=== PATIENT | female | born 1935 | race Caucasian/White ===

== ENCOUNTER → 2018-01-17 08:59 | Outpatient (CLI) | payer MEDICARE, OTHER, SELFPAY ==
--- NOTE | 2018-01-17 09:33 | DI.CT.S_ITS ---
PROCEDURE: CT CHEST W CON INDICATIONS: re-staging esophogeal cancer TECHNIQUE: After the administration of intravenous contrast, 5 mm thick sections acquired from the pulmonary apices to the posterior costophrenic angles. 7 mm thick coronal and sagittal MIP reformats were acquired. For radiation dose reduction, the following was used: automated exposure control, adjustment of mA and/or kV according to patient size. COMPARISON: [facility], CT, CHEST/ABD/PEL WITH CONTRAST, 01/10/2017, 8:46. [facility], CT, CHEST/ABDOMEN WITH CONTRAST, 01/11/2016, 8:21. [facility], CT, CHEST/ABDOMEN WITH CONTRAST, 01/05/2015, 11:09. [facility], CT, CHEST/ABDOMEN WITH CONTRAST, 03/20/2014, 14:21. FINDINGS: Image quality: Excellent. Lungs and pleura: No acute consolidation. Small 6 mm pulmonary nodule within the left lower lobe , unchanged. No pleural effusions or pneumothorax. Central and peripheral airways are patent and normal in caliber. Mediastinum: Heart size is normal. No pericardial effusion. No mediastinal or hilar adenopathy by size criteria. Thoracic aorta and central pulmonary arteries are normal in size. Esophagus appears unchanged. Mildly prominent paraesophageal lymph nodes redemonstrated Bones and chest wall: 1.1 cm left breast mass is indeterminate but needs mammographic workup. Unchanged vertebral body compression fractures and vertebroplasty . No axillary or supraclavicular adenopathy by size criteria. Thyroid gland unchanged. Abdomen: Ovoid hypodense lesion in the spleen, unchanged. IMPRESSION: Small left breast mass, indeterminate but needs mammographic/ultrasound workup. Otherwise, stable exam. No definite evidence of progressive metastatic disease since 01/10/17. Dictated by: Gurmeet Colin M.D. on 01/17/2018 at 10:24 Approved by: Gurmeet Colin M.D. on 01/17/2018 at 11:07
[2018-01-17 09:35] LABS: Add Manual Diff / Slide Review NO; Basophils Percent Auto 0.7 % (0-2); Hematocrit 44.8 % (36-46); Hemoglobin 14.9 g/dL (12.0-16.0); Lymphocytes Percent Auto 13.6 % (25-40); Mean Corpuscular HGB Conc 33.2 % (30-36); Mean Corpuscular Hemoglobin 30.6 PG (26-34); Monocytes Percent Auto 4.6 % (3-14); Neutrophils Absolute Auto 5000 /uL (3000-5900); Neutrophils Percent Auto 80.1 % (50-75); Platelet Count 218 X10^3/uL (150-400); Red Blood Cell Count 4.87 X10^6/uL (4.0-5.2); Red Cell Distribution Width 13.4 % (11.6-14.8); White Blood Cell Count 6.2 X10^3/uL (4.5-11.0)
[2018-01-17 09:46] LABS: Alanine Aminotransferase 23 IU/L (9-52); Albumin 4.4 g/dL (3.5-5.0); Albumin Globulin Ratio 1.6 (1.0-2.8); Alkaline Phosphatase 61 U/L (38-126); Aspartate Aminotransferase 23 IU/L (14-36); Bilirubin Total 0.6 mg/dL (0.2-1.3); Blood Urea Nitrogen 14 mg/dL (7-17); Calcium 9.1 mg/dL (8.4-10.2); Carbon Dioxide 29 mmol/L (22-32); Chloride 104 mmol/L (98-107); Estimated Glomerular Filt Rate > 60.0 mL/min (>60); Globulin 2.7 g/dL (1.7-4.1); Glucose 112 mg/dL (80-110); HEMOLYSIS < 15 (0-50); Potassium 4.1 mmol/L (3.4-5.1); Sodium 143 mmol/L (137-145); Total Protein 7.1 g/dL (6.3-8.2)
== END ==
PROVIDERS: Family Provider Family Medicine; PCP Family Medicine; Visit Provider Internal Medicine Hematology & Oncology
DX: C15.9 Malignant neoplasm of esophagus, unspecified (principal)
CPT/HCPCS: 36415; 71260; 80053; 85025; Q9967

== ENCOUNTER → 2018-02-20 12:31 | Outpatient (CLI) | payer MEDICARE, OTHER, SELFPAY ==
--- NOTE | 2018-02-20 | PATH_ITS ---
[facility] Accession Number: [id number] . 01 Material submitted: . LEFT BREAST . 01 Clinical history: . MASS 1 O'CLOCK 5CM FROM NIPPLE . 02 Diagnosis: Left Breast Needle Core Biopsy, 1 o'clock, 5 cm from the Nipple: Infiltrating ductal carcinoma, with the following features: 1. Tumor size: Largest single area of involvement measures 0.5 cm. All four tissue cores involved with tumor. 2. Tumor grade: [place] grade 1 of 3 (low grade), score 5 of 9. Nuclear grade: Low (score 1 of 3). Mitotic rate: Low (score 1 of 3). Tubular differentiation: Low (score 3 of 3). 3. Ductal carcinoma in situ: Focally present, low nuclear grade with a solid growth pattern without necrosis or microcalcifications. 4. Vascular/lymphatic invasion: Not identified. 5. Receptor studies (immunohistochemistry): Estrogen receptor positive, 100% of cells with strong nuclear staining. Progesterone receptor: Positive, 20% of cells with strong nuclear staining. HER-2/connie: Negative (score 0 to 1+). 6. Additional studies: Immunohistochemistry performed with antibodies against e-cadherin (positive, supporting a diagnosis of infiltrating ductal carcinoma). . . . COMMENT: Case reviewed by Dr. Naila Huggins who agrees with the diagnosis. . Preliminary results of this evaluation are telephoned to the office of Dr. Hayder Banegas at 1 p[address] on 02/22/2018. [facility]/02/25/2018 . 02 Electronically signed: . Duke Almendarez MD, Pathologist NPI- [id number] . 01 Gross description: . Received one formalin-filled container labeled with the patient's name and designated left breast mass 1 o'clock 5 cm from nipple. The specimen is received with a plastic filter, sample loose in container. The specimen consists of multiple cabrera-white to yellow-cabrera portions of tissue which aggregate to 0.6 x 0.6 x 0.2 cm. The specimen is filtered, wrapped, and entirely submitted in one cassette. Collection date: 02/20/2018. Collection time: 13:40 per container. Total fixation time: 12 hours, up to 24. (DC:[id number]) /FRR . 02 Pathologist provided ICD-10: C50.412 . 02 CPT . 950414, 234711, 004653, 696940, N21912 Performed at: 01 [facility] [address] [place] [address], [place], [place] [id number] MD Alhaji Martínez MD Phone: [phone] Performed at: 02 [facility] [address] [address] [place], [place] [id number] MD Naila Huggins MD Phone: [phone]
--- NOTE | 2018-02-20 12:33 | DI.US.S_ITS ---
ULTRASOUND GUIDED BIOPSY LEFT BREAST USING VACUUM DEVICE WITH MARKING DEVICE INSERTED: 02/20/2018 CLINICAL: Left breast mass. PATIENT CONSENT: Risks (minor bleeding, infection, vasovagal reaction and repeat procedure), benefits and alternatives were explained to the patient and written informed consent was obtained. Correlation is made to exams dated: 01/28/2018 ultrasound, 01/28/[address] [facility], and 05/27/2012 mammogram [facility]. An ultrasound guided biopsy using real-time ultrasound was performed for the mass located in the left breast at 1 o'clock posterior depth. The skin was prepped in the usual manner. Local anesthetic was administered to the access site. A small incision was made in the breast. The abnormality was approached from the lateral aspect. A biopsy needle was placed adjacent to the abnormality under ultrasound guidance. Once the needle was documented to be in the correct location, a specimen was obtained using the Mammotome biopsy system. A clip was inserted into the biopsy cavity. The specimen was sent to the laboratory for pathological analysis. IMPRESSION: ULTRASOUND GUIDED BIOPSY MALIGNANT Ultrasound guided biopsy of the mass in the left breast at 1 o'clock posterior depth was successful. Patholology results demonstrate infiltrating ductal carcinoma with DCIS present. The findings are concordant with mammography and ultrasound. This exam was interpreted at Station ID: [id number]. Gurmeet aguilar,tal/:02/27/2018 10:34:52
--- NOTE | 2018-02-20 12:33 | DI.MG.S_ITS ---
UNILATERAL LEFT DIGITAL DIAGNOSTIC MAMMOGRAM POST-NEEDLE BIOPSY: 02/20/2018 CLINICAL: Left breast mass. Comparison is made to exams dated: 01/28/2018 mammogram - [facility], 05/27/2012 mammogram, and 05/26/2011 mammogram - [facility]. There are scattered fibroglandular elements in left breast. There is a marker clip in the appropriate position in the left breast at 1 o'clock middle depth. This marker clip placement is at the biopsy site. IMPRESSION: POST PROCEDURE MAMMOGRAM FOR MARKER PLACEMENT There was a successful marker clip placement in the left breast middle depth. This exam was interpreted at Station ID: [id number]. NOTE: For mammograms, a report in lay terms will be sent to the patient. Approximately 15% of breast malignancies will not be visualized mammographically. In the management of a palpable breast mass, a negative mammogram must not discourage biopsy of a clinically suspicious lesion. Electronically Signed By: Gurmeet aguilar/:02/20/2018 15:40:07 ACR BI-RADS Category Post-procedure mammogram for marker placement
== END ==
PROVIDERS: Family Provider Family Medicine; PCP Family Medicine
DX: C50.412 Malignant neoplasm of upper-outer quadrant of left female breast (principal); Z17.0 Estrogen receptor positive status [ER+]
CPT/HCPCS: 19083; 77065; 88305; 88342; 88360

== ENCOUNTER → 2018-02-26 08:59 | Outpatient (CLI) | payer MEDICARE, OTHER, SELFPAY ==
--- NOTE | 2018-02-26 | DI.MRI.S_ITS ---
PROCEDURE: MR THORACIC SPINE WO CON INDICATIONS: THORACIC COMPRESSION FRACTURE TECHNIQUE: Noncontrast sagittal T1 spine echo and T2 fast spin echo, sagittal STIR, axial T1 and T2 fast spin echo through the thoracic spine. COMPARISON: [facility], CT, CT CHEST W CON, 01/17/2018, 9:50. [facility], MR, T-SPINE WITHOUT CONTRAST, 04/02/2014, 10:12. FINDINGS: Image quality: Excellent. Chronic T7 compression fracture of approximately 50% height loss anteriorly. Acute or subacute T5 and T6 mild compression fractures with approximately 10-20% height loss anteriorly. No definite posterior displacement of the posterior vertebral body wall or associated canal narrowing. There are chronic appearing scattered small Schmorl's nodes without associated edema. There is thoracic kyphosis Spinal Cord: Visualized spinal cord is normal in size and signal. Cardiomegaly. Miscellaneous: On axial images, central canal and foramina appear widely patent at all scanned levels. IMPRESSION: Acute versus subacute mild T5 and T6 compression fractures. Chronic T7 compression fracture with progression in height loss. Thoracic kyphosis. Dictated by: Gurmeet Colin M.D. on 02/26/2018 at 12:43 Approved by: Gurmeet Colin M.D. on 02/26/2018 at 12:56
== END ==
PROVIDERS: PCP Family Medicine; Visit Provider Orthopaedic Surgery
DX: M48.54XA Collapsed vertebra, not elsewhere classified, thoracic region, initial encounter for fracture (principal); M40.204 Unspecified kyphosis, thoracic region
CPT/HCPCS: 72146

== ENCOUNTER 2018-03-20 07:03 | Day surgery (SDC) | payer MEDICARE, OTHER, SELFPAY ==
[2018-03-15 12:59] VITALS: BMI 20.4
[2018-03-20] VITALS (9 sets, daily range): BP systolic 132–173; BP diastolic 79–88; PULSE 71–88; RESP 15–21; TEMP 35.9–36.7; O2SAT 95–98
--- NOTE | 2018-03-20 | DI.MG.S_ITS ---
UNILATERAL LEFT DIGITAL DIAGNOSTIC MAMMOGRAM POST-NEEDLE BIOPSY: 03/20/2018 CLINICAL: Left breast cancer. Comparison is made to exams dated: 02/20/2018 mammogram - [facility], 01/28/2018 mammogram - [facility], and [facility]. There are scattered fibroglandular elements in left breast. There is a mass in the left breast at 1 o'clock middle depth, with internal biopsy marker from prior US biopsy, and also new localization wire for today's surgery.. IMPRESSION: KNOWN BIOPSY PROVEN MALIGNANCY The mass in the left breast has been localized by wire to assist in surgical excision. This exam was interpreted at Station ID: [id number]. NOTE: For mammograms, a report in lay terms will be sent to the patient. Approximately 15% of breast malignancies will not be visualized mammographically. In the management of a palpable breast mass, a negative mammogram must not discourage biopsy of a clinically suspicious lesion. Electronically Signed By: Pernell Roberson M.D. [facility]/:03/20/2018 16:49:40 ACR BI-RADS Category 6: Known biopsy proven malignancy 3346F
--- NOTE | 2018-03-20 | DI.NM.S_ITS ---
PROCEDURE: NM SENTINEL NODE W IMAGING RADIOPHARMACEUTICAL: 0.5-1.0 mCi Millipore filtered Tc-99m sulfur colloid. INDICATIONS: LEFT BREAST CANCER TECHNIQUE: The area around the nipple was prepped and draped in a sterile fashion. Tc-99m sulfur colloid was injected intra-dermally in the outer edge of the areola in the left breast. Images were obtained subsequently. A body contour outline was obtained. FINDINGS: There is/are 4 lymph node(s) in the ipsilateral axilla, which is marked on the skin and the images for referring physician. IMPRESSION: Administration of radiotracer into the left breast periareolar region for intra-operative sentinel lymph node localization. Dictated by: Pernell Roberson M.D. on 03/20/2018 at 10:58 Approved by: Pernell Roberson M.D. on 03/20/2018 at 10:59
--- NOTE | 2018-03-20 | DI.US.S_ITS ---
ULTRASOUND GUIDED WIRE LOCALIZATION LEFT BREAST WITH POST MAMMOGRAPHIC IMAGING AND RADIOGRAPHIC SPECIMEN IMAGIN03/20/2018 CLINICAL: Pre-op wire localization with ultrasound guidance. Correlation is made to exams dated: 03/20/2018 specimen, 02/20/2018 ultrasound biopsy, 02/20/2018 mammogram [facility], 01/28/2018 ultrasound, and 01/28/2018 mammogram [facility]. A wire localization using ultrasound guidance was performed for the concerning 0.9 cm x 1.1 cm x 1.2 cm spiculated lobulated solid mass located in the left breast at 1 o'clock middle depth. This was described on the previous ultrasound and biopsy reports. The skin was prepped in the usual manner. Local anesthetic was administered to the access site. The localization was approached from the lateral aspect. A J-hook wire was inserted into the targeted area through an introducer device under ultrasound guidance. The patient received additional local anesthetic during the procedure. A sterile dressing was applied to the access site. Post placement mammographic imaging was obtained. IMPRESSION: WIRE LOCALIZATION Wire localization for the 0.9 cm x 1.1 cm x 1.2 cm solid mass in the left breast at 1 o'clock middle depth was successful. The imaged specimen includes the lesion, the mass, a biopsy clip, and the distal portion of the localization wire. A specimen radiograph is recommended. This exam was interpreted at Station ID: [id number]. Pernell alexandra/josseline:03/20/2018 16:43:23
--- NOTE | 2018-03-20 | PATH_ITS ---
[facility] Accession Number: [id number] . 01 Material submitted: . PART A: LEFT AXILLARY SENTINEL NODE PART B: LEFT BREAST . Diagnosis: A. Left Axillary Grulla Lymph Node, Dissection: One lymph node, negative for malignancy. . B. Left Breast, Excision: Invasive ductal carcinoma (with lobular growth pattern), grade 2 of 3 (Sancho combined histologic grade, total score 6/9), with the following features: 1. Tumor size (invasive component): 1.4 cm, by gross measurement. 2. Nuclear pleomorphism: Intermediate (2/3). 3. Mitotic rate: Low (1/3). 4. Tubular differentiation: Little or none (3/3). 5. Ductal carcinoma in situ: Present, solid growth pattern with the following features: i. Nuclear grade: Intermediate. ii. Necrosis: Present, focal punctate. iii. Extent: Present on 3 slides, approximate span of 1.7 cm. 6. Calcifications: Present, in association with invasive carcioma, ductal carcinoma in situ, and benign breast parenchyma. 7. Lymphatic invasion: Not identified. 8. Resection margins: i. Invasive carcinoma: Negative (0.15 cm to anterior, 0.4 cm to posterior, 0.6 cm to inferior, and more than 1 cm to the remaining margins). ii. DCIS: Negative (0.4 cm to anterior, 0.6 cm to posterior, and more than 1 cm to the remaining margins). 9. Prognostic markers (performed on prior biopsy [id number]): Estrogen receptor: Positive (100% of tumor cells staining, strong staining intensity). Progesterone receptor: Positive (20% tumor cells staining, strong intensity. HER-2 status: Negative for protein overexpression by immunohistochemistry (0-1+). 10. Additional findings: - Skin, nipple, and skeletal muscle: Not present for evaluation. - Other: Sclerosing papilloma, apocrine metaplasia, usual ductal hyperplsaia, and microcysts. - Biopsy site changes: present. 11. Pathologic stage: pT1c, pN0. MRV/03/25/2018 . 01 Electronically signed: . Ruby Swan MD, Pathologist NPI- [id number] . 01 Gross description: . A. Received in formalin labeled with the patient's name and left axillary sentinel node is a 2.0 x 2.0 x 1.0 cm aggregate of yellow fat. Sectioning in this fat reveals a single yellow lymph node, which is 1.2 cm in greatest dimension. It is bisected and entirely submitted as A1. B. Received in formalin labeled with the patient's name and left breast lumpectomy is a 30 gram oriented lumpectomy specimen. This lumpectomy is received oriented per the requisition with the short suture at superior, wire lateral, and long suture at anterior. Using this orientation, the specimen has the following measurements: 5.5 cm superior to inferior, 5.0 cm medial to lateral and 2.2 cm anterior to posterior. The wire is piercing the specimen from lateral towards medial. It is removed. The specimen is inked as follows: anterior- blue, posterior-black, superior-red, inferior-green, lateral-yellow, and medial-orange. The specimen is serially sectioned from superior to inferior into 10 slices. Sectioning reveals a hard well- circumscribed white nodule. In the center of this nodule is a silver metal clip. The nodule is 1.4 x 1.0 x 0.6 cm. It is 3.2 cm from the superior margin, 0.6 cm from the inferior margin, 1.7 cm from the medial margin, 2.1 cm from the lateral margin and less than 0.1 cm from both the anterior and posterior margins. Motor Adjuster sections are submitted sequentially from superior to inferior to include renewals representative sections through all of the margins as B1-B7. (SB:[id number]) /[facility] . 01 Microscopic: . Deeper levels are obtained on slides B4 and B5 to examine the margins, and on A1 for further examination of the sentinel lymph node. . Immunostains, including myoepithelial markers (p63 and smooth muscle myosin) and a lymphovascular marker D2-40 are obtained to assess for the presence of solid papillary carcinoma on block B5. The external controls stain appropriately. The myoepithelial markers are retained around the majority of the areas of interest in support of DCIS. D2-40 highlights lymphatic spaces without evidence of lymphatic space invasion. A focus of perineural invasion is identified. . * This test was developed and its performance characteristics determined by [employer]. It has not been cleared or approved by the U.S. Food and Drug Administration. The FDA has determined that such clearance or approval is not necessary. This test is used for clinical purposes. It should not be regarded as investigational or for research. . 01 Pathologist provided ICD-10: C50.412 . 01 CPT . 050579, O54540, G16114 Performed at: 01 [facility] [address] [place] [address] [address] [facility], [place], [place] [id number] MD Alhaji Martínez MD Phone: [phone]
--- NOTE | 2018-03-20 | DI.MG.S_ITS ---
SPECIMEN LEFT BREAST: 03/20/2018 CLINICAL: Left breast specimen. Correlation is made to exams dated: 03/20/2018 mammogram, 02/20/2018 mammogram - [facility], and 01/28/2018 mammogram - [facility]. A surgical specimen was imaged for the concerning spiculated irregular shaped mass located in the left breast at 1 o'clock middle depth. IMPRESSION: SPECIMEN The imaged specimen includes the lesion, a biopsy clip, and a location device. This exam was interpreted at Station ID: [id number]. Pernell Roberson M.D. nasrin/josseline:03/20/2018 16:51:41
[2018-03-20] MEDS: LACTATED RINGERS 1,000 ML 100 ML IV (10:15)
--- NOTE | 2018-03-20 11:23 | PM.PREOP ---
Pre-operative Note Interval Note History & Physical reviewed/Exam performed by Physician: Yes Changes to H&P: Yes H&P completed within 30 days and has changed as indicated here:: Final pathology reveals invasive ductal carcinoma grade 5 of 9 which is 100% estrogen sensitive.
[2018-03-20] MEDS: CEFAZOLIN 2 GM/100 ML FROZ.PIGGY IV (11:38)
--- NOTE | 2018-03-20 11:58 | SUR.OPER ---
Supine on padded OR bed, head on pillow, arms secured on padded arm boards at <90 degrees abduction, legs uncrossed, safety belt at thigh, tape over blanket over lower legs.
[2018-03-20] MEDS: BUPIVACAINE 0.5% (PF) VIAL 30 ML INJ (12:06)
[2018-03-20] MEDS: LIDOCAINE 1% W/EPI INJ 20 ML INJ (12:06)
--- NOTE | 2018-03-20 12:18 | PM.OP.1 ---
Operative Date/Time/Diagnoses Date of procedure: 03/20/18 Time of procedure: 12:19 Pre-op diagnosis: Biopsy-proven left breast cancer Post-op diagnosis: same Procedure & Clinicians Procedure: Left breast lumpectomy and sentinel node biopsy after needle localization and mapping Same procedure as scheduled: Yes Indications: Biopsy-proven left breast infiltrating carcinoma Surgeon: Kenna Aj Anesthesia Type: General (Dr. Dunbar) Operative Notes Findings: 1. Single sentinel node with 10 sec count greater than 21,000. Background in the axilla of less than 20. Background in the room is 0 2. Clip, wire, and mass all contained within the specimen. Closure Type: primary Specimen(s): other (1. Left axillary sentinel node, 2. Left breast mass marked for orientation) Implants & Drains: Clips luis the lumpectomy cavity Estimated Blood Loss (mL): 10 Blood products transfused: none Procedure in detail: After obtaining informed consent, the patient was brought to the operating room and placed in the supine position on the operating table. Following successful induction of general endotracheal anesthesia, appropriate padding of all bony prominences, and placement of appropriate monitors, the left breast and axilla were prepped and draped in a standard surgical fashion. A timeout was held per SCOAP protocol. Following injection of mixture of local anesthetics into the axillary fold on the left side, an incision was created and carried down through the skin and subcutaneous tissue to enter the axillary fat pad below. The Navigator was used to identify the sentinel node. This was done by identifying a moderate-sized node in level I of the axillary packet. The node itself had a 1 second count of approximately greater than 2000 in a background of less than 20. The node was carefully liberated from the remainder of the axillary packet being sure not to compromise any of the other lymphatic structures. All afferent and efferent lymphatics and vasculature were addressed with hemoclips prior to division. The wound was checked for hemostasis and irrigated with warm water. We continued with lumpectomy on the left side. Due to the relative locations of the node in the mass, we were able to do the lumpectomy through the same incision by which we had obtained the sentinel node. Using traction and counter-traction, the mass and localizing wire carefully dissected free from the overlying skin, underlying muscle, and surrounding breast tissue. The mass was delivered into the field and marked appropriately. It was sent for specimen x-ray. The wound was checked for hemostasis and irrigated with water. The radiologist called back into the room noting that the specimen x-ray contained the wire clip and mass. The wound was checked once again for hemostasis. It was irrigated copiously with warm water and aspirated free of all fluid and then closed in 2 layers with Vicryl Monocryl suture. Dermabond was applied to the skin incisions. Fluffs and a breast binder were applied. The patient tolerated the procedure very well. She was allowed awaken from anesthesia and taken to the post-anesthesia care unit in good condition. Complications: none Condition: stable Disposition: PACU Plan for aftercare: 1. Discharge to home 2. Follow up with me in 2 weeks
--- NOTE | 2018-03-20 12:24 | P.OP_ITS ---
Operative Date/Time/Diagnoses Date of procedure: 03/20/18 Time of procedure: 12:19 Pre-op diagnosis: Biopsy-proven left breast cancer Post-op diagnosis: same Procedure & Clinicians Procedure: Left breast lumpectomy and sentinel node biopsy after needle localization and mapping Same procedure as scheduled: Yes Indications: Biopsy-proven left breast infiltrating carcinoma Surgeon: Kenna Aj Anesthesia Type: General (Dr. Dunbar) Operative Notes Findings: 1. Single sentinel node with 10 sec count greater than 21,000. Background in the axilla of less than 20. Background in the room is 0 2. Clip, wire, and mass all contained within the specimen. Closure Type: primary Specimen(s): other (1. Left axillary sentinel node, 2. Left breast mass marked for orientation) Implants & Drains: Clips luis the lumpectomy cavity Estimated Blood Loss (mL): 10 Blood products transfused: none Procedure in detail: After obtaining informed consent, the patient was brought to the operating room and placed in the supine position on the operating table. Following successful induction of general endotracheal anesthesia, appropriate padding of all bony prominences, and placement of appropriate monitors, the left breast and axilla were prepped and draped in a standard surgical fashion. A timeout was held per SCOAP protocol. Following injection of mixture of local anesthetics into the axillary fold on the left side, an incision was created and carried down through the skin and subcutaneous tissue to enter the axillary fat pad below. The Navigator was used to identify the sentinel node. This was done by identifying a moderate- sized node in level I of the axillary packet. The node itself had a 1 second count of approximately greater than 2000 in a background of less than 20. The node was carefully liberated from the remainder of the axillary packet being sure not to compromise any of the other lymphatic structures. All afferent and efferent lymphatics and vasculature were addressed with hemoclips prior to division. The wound was checked for hemostasis and irrigated with warm water. We continued with lumpectomy on the left side. Due to the relative locations of the node in the mass, we were able to do the lumpectomy through the same incision by which we had obtained the sentinel node. Using traction and counter -traction, the mass and localizing wire carefully dissected free from the overlying skin, underlying muscle, and surrounding breast tissue. The mass was delivered into the field and marked appropriately. It was sent for specimen x- ray. The wound was checked for hemostasis and irrigated with water. The radiologist called back into the room noting that the specimen x-ray contained the wire clip and mass. The wound was checked once again for hemostasis. It was irrigated copiously with warm water and aspirated free of all fluid and then closed in 2 layers with Vicryl Monocryl suture. Dermabond was applied to the skin incisions. Fluffs and a breast binder were applied. The patient tolerated the procedure very well. She was allowed awaken from anesthesia and taken to the post-anesthesia care unit in good condition. Complications: none Condition: stable Disposition: PACU Plan for aftercare: 1. Discharge to home 2. Follow up with me in 2 weeks
[2018-03-20] MEDS: ONDANSETRON 4 MG/2 ML INJ IV (12:55)
--- NOTE | 2018-03-20 13:26 | SUR.PHASEII ---
PT WAS MEDICATED FOR C/O NAUSEA, AT PRESENT SHE IS TOLERATING ORAL FLUIDS AND CRACKERS, D/C INSTRUCTIONS REVIEWED WITH PT AND HER FRIEND URVASHI WITH VERBALIZED UNDERSTANDING.
== END 2018-03-20 15:57 ==
PROVIDERS: PCP Family Medicine; Visit Provider Surgery
PROC: (CPT 19301; principal; 2018-03-20 11:45)
DX: C50.412 Malignant neoplasm of upper-outer quadrant of left female breast (principal); Z85.01 Personal history of malignant neoplasm of esophagus; I10 Essential (primary) hypertension; Z87.891 Personal history of nicotine dependence
CPT/HCPCS: 19301; 38500; 19285; 76098; 77065; 78195; 88307; 88341; 88342; A9541; J0690; J1100; J2405; J2704; J3010

== ENCOUNTER → 2019-01-20 07:22 | Outpatient (CLI) | payer MEDICARE, OTHER, SELFPAY | PROVIDERS: Family Provider Family Medicine; PCP Family Medicine; Visit Provider Radiology Radiation Oncology | DX: Z12.31 Encounter for screening mammogram for malignant neoplasm of breast (principal); Z53.9 Procedure and treatment not carried out, unspecified reason ==

== ENCOUNTER → 2019-02-11 09:11 | Outpatient (CLI) | payer MEDICARE, OTHER, SELFPAY ==
--- NOTE | 2019-02-11 | DI.MG.S_ITS ---
BILATERAL DIGITAL SCREENING MAMMOGRAM 3D/2D WITH CAD: 02/11/2019 CLINICAL: Routine. Personal history of breast cancer. Comparison is made to exams dated: 03/20/2018 mammogram, 02/20/2018 mammogram - [facility], 01/28/2018 mammogram - [facility], and 05/27/2012 mammogram - [facility]. There are scattered fibroglandular elements in both breasts. Current study was also evaluated with a Computer Aided Detection (CAD) system. There are benign calcifications in both breasts. There also are benign post operative findings in the left breast. No significant masses, calcifications, or other findings are seen in either breast. There has been no significant interval change. IMPRESSION: There is no mammographic evidence of malignancy. A 1 year screening mammogram is recommended. This exam was interpreted at Station ID: [id number]. NOTE: For mammograms, a report in lay terms will be sent to the patient. Approximately 15% of breast malignancies will not be visualized mammographically. In the management of a palpable breast mass, a negative mammogram must not discourage biopsy of a clinically suspicious lesion. Electronically Signed By: Rock estrada/josseline:02/12/2019 11:58:04 letter sent: Normal Exam ACR BI-RADS Category 2: Benign Finding(s) 3342F
== END ==
PROVIDERS: Family Provider Family Medicine; PCP Family Medicine; Visit Provider Radiology Radiation Oncology
DX: Z12.31 Encounter for screening mammogram for malignant neoplasm of breast (principal); Z80.3 Family history of malignant neoplasm of breast
CPT/HCPCS: 77063; 77067

== ENCOUNTER 2019-02-20 10:27 | Day surgery (SDC) | payer MEDICARE, OTHER, SELFPAY ==
--- NOTE | 2019-02-20 | PATH_ITS ---
[facility] Accession Number: [id number] . 01 Material submitted: . PART A: cecum - CECAL POLYP PART B: colon - ASCENDING COLON POLYP PART C: colon - COLON POLYP AT 25 CM X2 . 02 Diagnosis: A. Cecum, Polyp: Tubular adenoma. . B. Ascending Colon, Polyp: Tubulovillous adenoma. Negative for high-grade dysplasia or malignancy. . C. Colon at 25 cm, Polyps; Fragments of tubular adenoma/tubulovillous adenoma (two polyps removed). Negative for high-grade dysplasia or malignancy. MRV 02/21/2019 1505 Local . 02 Electronically signed: . Fabián Johnson MD, PhD, Pathologist NPI- [id number] . 01 Gross description: . Received three formalin-filled containers, each labeled with the patient's name: . A. In a container labeled cecal polyp are three fragments of cardona, soft tissue which range in size from less than 0.1 cm to 0.3 x 0.2 x 0.2 cm. All fragments are totally submitted in cassette A. B. In a container labeled ascending colon polyp are multiple fragments of cardona, soft tissue which range in size from 0.1 x 0.1 x 0.1 cm to 0.4 x 0.3 x 0.3 cm. All fragments are totally submitted in cassette B. C. In a container labeled colon polyp at 25 cm x2 are three fragments of cardona, soft tissue which range in size from 0.8 x 0.5 x 0.5 cm to 1.5 x 1.5 x 1.4 cm. The specimen is sectioned into multiple pieces and entirely submitted in cassettes C1-C3. ([id number]) /[facility] 02/21/2019 0228 Local . 02 Pathologist provided ICD-10: D12.0, D12.2, D12.6 . 02 CPT . 620878, [id number], [id number] Performed at: 01 [facility] [address] [id number] MD Ahlaji Martínez MD Phone: [phone] Performed at: 02 [facility] [place] [address] [place], [place] [id number] MD Naila Huggins MD Phone: [phone]
[2019-02-20 11:00] VITALS: BP 127/85; PULSE 84; RESP 20; TEMP 36.2; O2SAT 99; BMI 19.5
[2019-02-20] MEDS: SODIUM CHLORIDE 0.9% 1,000 ML 200 ML IV (11:08)
--- NOTE | 2019-02-20 11:36 | PM.PREOP ---
Pre-operative Note Interval Note History & Physical reviewed/Exam performed by Physician: Yes Changes to H&P: No ASA Class (for procedural sedation): II
[2019-02-20] MEDS: MIDAZOLAM 5 MG/5 ML VIAL IV (11:47)
[2019-02-20] MEDS: fentaNYL 250 MCG/5 ML INJ IV (11:47)
--- NOTE | 2019-02-20 12:45 | PM.OP.ENDO ---
Operative Date/Time/Diagnoses Date of procedure: 02/20/19 Time of procedure: 12:45 Pre-op diagnosis: Rectal bleeding Post-op diagnosis: same (Multiple large polyps. Internal hemorrhoids) Procedure & Clinicians Study performed: Colonoscopy with hot snare polypectomies X4 Same procedure as scheduled: Yes Indications: Determine cause of bleeding Surgeon: Gutierrez Jennings Procedure Notes SCOAP/Timeout: Performed Procedure in detail: The patient was placed in the left lateral decubitus position and underwent IV sedation directed by the surgeon consisting of fentanyl and Versed. Digital exam was unremarkable. The scope was inserted and advanced through the rectum into the sigmoid, descending, transverse, and ascending colon. Large polyps were noted at 25 cm which I decided to remove on the way out. There were numerous diverticuli of the sigmoid colon with tortuosity. Patient was noted to have an ascending polyp as well. The cecum was reached identified by the ileocecal valve and the appendiceal opening. There was a polypoid lesion in the cecum which was hot snared and removed. I also hot snared the polyp in the ascending colon. The scope was gradually brought out. Two additional large Polyps were found at 25 cm from the anal verge. These were snared and the base of 1 cauterized. I had to retrieve them 1 at a time using a Griffin net. I also injected ink in to 2 spots just distal to these lesions in order to tack to them for future reference. The scope ultimately was retroflexed in the rectum. The appearance was remarkable for internal hemorrhoids. I decided not to band them at this time but since I plan to reschedule this patient within the next 6 months to confirm complete removal of the lesions at 25 cm I will probably attempt a band at that time. The scope was removed and the patient tolerated the procedure well. Prep was very good. Scope withdrawal time: Exceeded 6 minutes(42total) Sedation minutes: 57 Findings: diverticulosis, internal hemorrhoids and polyp (Several large polyps) Specimen(s): other (Polyps) Complications: none Post-procedure Recommendations: Other recommendation (Colonoscopy in 3-6 months to carefully examine the area at 25 cm which was tattooed) Follow up: as needed Disposition: PACU
[2019-02-20 12:50] VITALS: BP 117/70; PULSE 64; RESP 15; TEMP 35.9; O2SAT 97
[2019-02-20 12:55] VITALS: BP 113/64; PULSE 61; RESP 12; O2SAT 97
[2019-02-20 13:00] VITALS: BP 112/68; PULSE 60; RESP 13; O2SAT 96
[2019-02-20 13:05] VITALS: BP 113/63; PULSE 61; RESP 14; O2SAT 96
[2019-02-20 13:26] VITALS: BP 120/69; PULSE 60; RESP 16; TEMP 36.3; O2SAT 99
== END 2019-02-20 13:53 | disposition home or self-care (01) ==
PROVIDERS: PCP Family Medicine; Visit Provider Specialist
PROC: 0DJD8ZZ Inspection of Lower Intestinal Tract, Via Natural or Artificial Opening Endoscopic (ICD-10-PCS; CPT 45378; principal; 2019-02-20 11:45)
DX: K64.8 Other hemorrhoids (principal); K57.30 Diverticulosis of large intestine without perforation or abscess without bleeding; D12.0 Benign neoplasm of cecum; D12.2 Benign neoplasm of ascending colon; D12.6 Benign neoplasm of colon, unspecified; Z85.01 Personal history of malignant neoplasm of esophagus; F41.9 Anxiety disorder, unspecified; F32.9 Major depressive disorder, single episode, unspecified; I10 Essential (primary) hypertension
CPT/HCPCS: 45381; 45385; 99152; 99153; J2250; J3010

== ENCOUNTER 2019-06-03 06:45 | Day surgery (SDC) | payer MEDICARE, OTHER, SELFPAY ==
[2019-06-03] VITALS (11 sets, daily range): BP systolic 90–127; BP diastolic 57–85; PULSE 64–92; RESP 10–20; TEMP 36.1–36.7; O2SAT 92–99; BMI 19.8
[2019-06-03] MEDS: LACTATED RINGERS 1,000 ML 42 ML IV (07:26)
--- NOTE | 2019-06-03 07:51 | PM.HP.1 ---
History of Present Illness History of Present Illness Date Patient Seen: 06/03/19 Time Patient Seen: 07:51 Chief complaint: [id number] Narrative: The patient is woman who had large polyps removed and a colonoscopy performed in February. She is here to confirm there is complete removal and no growth of any new lesion in the region Patient History Medical History Anxiety (Acute) Depression (Acute) HTN (hypertension) (Chronic) Hx of esophageal malignancy (Acute ~2013) Insomnia (Acute) Kyphosis (Acute) Surgical History Hx of kyphoplasty (Acute 05/29/14) Hx of lumpectomy (Acute) S/P total abdominal hysterectomy and bilateral salpingo-oophorectomy Status post appendectomy Status post hernia repair Status post tonsillectomy and adenoidectomy Family & Social History Family History Father Diabetes mellitus Gallstones Heart disease Mother Dementia Bladder cancer Stomach cancer Social History: household members spouse Tobacco & Substance use: Tobacco type cigarettes Smoking Status Former smoker alcohol intake current alcohol intake frequency 0-2 drinks per day Substance Use Type does not use Meds Home Medications and Allergies Home Medications Medication Instructions Recorded Confirmed Type lorazepam 0.5 mg tablet 0.5 mg PO BID PRN #30 tab 04/17/19 06/03/19 Rx metoprolol succinate 50 mg 50 mg PO QDAY #90 ter 05/12/19 06/03/19 Rx tablet,extended release 24 hr Allergies Allergy/AdvReac Type Severity Reaction Status Date / Time diazepam Allergy Mild ITCHING, Verified 06/03/19 07:08 REDNESS penicillin G Allergy Mild ITCHING, Verified 06/03/19 07:08 REDNESS simvastatin Allergy Mild TIRED AND Verified 06/03/19 07:08 ACHY Sulfa (Sulfonamide Allergy Mild ITCHING Verified 06/03/19 07:08 Antibiotics) REDNESS Review of Systems Review of Systems ROS: Yes All systems reviewed with the patient and are negative except as otherwise documented Exam Vital Signs (past 8 hours): - 06/03/19 07:20 Temperature 98.0 F Pulse Rate 92 H Respiratory Rate 16 Blood Pressure 127/85 Pulse Oximetry 95 Oxygen Delivery Method Room Air Narrative Exam Narrative: Thin patient in no distress lungs are clear no rales or rhonchi heart regular rate and rhythm no murmur gallop abdomen is soft nontender without mass Assessment & Plan Assessment & Plan narrative: The patient for a screening colonoscopy. I have discussed the procedure with them. Risks of bleeding, perforation which would necessitate major operation, failure to find remove all lesions, the potential tattoo were all discussed. All questions were answered. They wished to proceed.
--- NOTE | 2019-06-03 07:53 | PM.PREOP ---
Pre-operative Note Interval Note History & Physical reviewed/Exam performed by Physician: Yes Changes to H&P: No ASA Class (for procedural sedation): II
[2019-06-03] MEDS: MIDAZOLAM 5 MG/5 ML VIAL IV (08:26)
[2019-06-03] MEDS: fentaNYL 250 MCG/5 ML INJ IV (08:26)
--- NOTE | 2019-06-03 08:29 | PM.OP.ENDO ---
Operative Date/Time/Diagnoses Date of procedure: 06/03/19 Time of procedure: 08:29 Pre-op diagnosis: History of large polyps at 25 cm. Patient is brought for flexible sigmoidoscopy in order to determine if they were completely removed and any regrowth has occurred Post-op diagnosis: same (Diverticulosis. No regrowth.) Procedure & Clinicians Study performed: Flexible sigmoidoscopy Same procedure as scheduled: Yes Indications: History of large polyps. Patient brought back to confirm complete removal Surgeon: Gutierrez Jennings Procedure Notes SCOAP/Timeout: Not applicable Procedure in detail: The patient was placed in left lateral decubitus position underwent IV sedation directed by the surgeon consisting of fentanyl and Versed. Digital exam was unremarkable. Scope was inserted advanced through the rectum into the sigmoid. I encountered a great deal of resistance to advancement with regular scope in decided to remove it and use the pediatric scope this was inserted and was some tedious difficulty I was able to negotiate through the sigmoid to the region tattoo. This was clearly seen. I went well be on it to a level of 60 cm and then gradually brought the scope out. There were no mucosal lesions seen going in or out except for diverticulosis. The scope was removed and the patient tolerated the procedure well. Since she is no longer bleeding she did not desire anything done to her hemorrhoids at this time. Scope withdrawal time: Not applicable Sedation minutes: 22 Findings: diverticulosis and other findings (Tattooed areas seen no polyps seen) Specimen(s): none sent Complications: none Post-procedure Recommendations: Colonscopy in 5 years (If in good health) Follow up: as needed Disposition: PACU
--- NOTE | 2019-06-03 08:55 | SUR.PHASEI ---
Patient states that her nausea has passed.
[2019-06-03] MEDS: ONDANSETRON 4 MG/2 ML INJ IV ×2 (09:18→10:00)
--- NOTE | 2019-06-03 09:31 | SUR.PHASEII ---
This nurse called , Prasanth, who is on his way to pick up operator patient. Patient remains drowsy. Call light within reach. Warm blanket provided.
--- NOTE | 2019-06-03 10:05 | SUR.PHASEII ---
Late entry: 0950: Patient continues to complain of nausea but no emesis. Repeat IV zofran given. Patient had small amount of loose stool but denies abdominal pain. at bedside. All belongings returned to patient and discharge paperwork given to . Report given to Bisi Carcamo RN, for final discharge.
== END 2019-06-03 10:11 | disposition home or self-care (01) ==
PROVIDERS: PCP Family Medicine; Referring Provider Specialist; Visit Provider Specialist
PROC: 0DJD8ZZ Inspection of Lower Intestinal Tract, Via Natural or Artificial Opening Endoscopic (ICD-10-PCS; CPT 45378; principal; 2019-06-03 07:45)
DX: Z12.11 Encounter for screening for malignant neoplasm of colon (principal); Z86.010 Personal history of colon polyps; I10 Essential (primary) hypertension; F41.9 Anxiety disorder, unspecified; F32.9 Major depressive disorder, single episode, unspecified; K57.30 Diverticulosis of large intestine without perforation or abscess without bleeding
CPT/HCPCS: G0104; 99152; J2250; J2405; J3010

== ENCOUNTER → 2020-02-13 11:06 | Outpatient (CLI) | payer MEDICARE, OTHER, SELFPAY ==
--- NOTE | 2020-02-13 11:09 | DI.MG.S_ITS ---
BILATERAL DIGITAL SCREENING MAMMOGRAM 3D/2D WITH CAD POST LUMPECTOMY: 02/13/2020 CLINICAL: Routine screening. Personal history of left breast cancer. Comparison is made to exams dated: 02/11/2019 mammogram - [facility], 01/28/2018 mammogram - [facility], 05/12/2008 mammogram, and 02/20/2018 mammogram - [facility]. There are scattered fibroglandular elements in both breasts. Current study was also evaluated with a Computer Aided Detection (CAD) system. There are benign calcifications in both breasts. There also are benign post operative findings in the left breast. No significant masses, calcifications, or other findings are seen in either breast. There has been no significant interval change. IMPRESSION: BENIGN There is no mammographic evidence of malignancy. A 1 year screening mammogram is recommended. This exam was interpreted at Station ID: [id number]. NOTE: For mammograms, a report in lay terms will be sent to the patient. Approximately 15% of breast malignancies will not be visualized mammographically. In the management of a palpable breast mass, a negative mammogram must not discourage biopsy of a clinically suspicious lesion. Electronically Signed By: Sudhir luis/josseline:02/13/2020 11:44:10 copy to: AMANDA EDOUARD letter sent: Normal Exam ACR BI-RADS Category 2: Benign Finding(s) 3342F
== END ==
PROVIDERS: PCP Family Medicine; Referring Provider Internal Medicine Hematology & Oncology; Visit Provider Internal Medicine Hematology & Oncology
DX: Z12.31 Encounter for screening mammogram for malignant neoplasm of breast (principal); C50.412 Malignant neoplasm of upper-outer quadrant of left female breast
CPT/HCPCS: 77063; 77067

== ENCOUNTER → 2020-10-26 09:20 | Outpatient (CLI) | payer MEDICARE, OTHER, SELFPAY ==
[2020-10-26 11:14] LABS: TSH w/ Reflex to FT4 2.99 uIU/mL (0.47-4.68)
== END ==
PROVIDERS: PCP Family Medicine; Referring Provider Family Medicine; Visit Provider Family Medicine
DX: E03.9 Hypothyroidism, unspecified (principal); R53.83 Other fatigue
CPT/HCPCS: 36415; 84443

== ENCOUNTER → 2021-02-17 08:07 | Outpatient (CLI) | payer MEDICARE, OTHER, SELFPAY ==
--- NOTE | 2021-02-17 08:10 | DI.MG.S_ITS ---
BILATERAL DIGITAL SCREENING MAMMOGRAM 3D/2D WITH CAD: 02/17/2021 CLINICAL: Routine screening. Personal history of left breast cancer. Comparison is made to exams dated: 02/13/2020 mammogram, 02/11/2019 mammogram - [facility], and 01/28/2018 mammogram - [facility]. There are scattered fibroglandular elements in both breasts. Current study was also evaluated with a Computer Aided Detection (CAD) system. There are benign calcifications in both breasts. There also are benign vascular calcifications in the right breast. Additionally, there are benign post operative findings in the left breast. No significant masses, calcifications, or other findings are seen in either breast. There has been no significant interval change. IMPRESSION: BENIGN There is no mammographic evidence of malignancy. A 1 year screening mammogram is recommended. This exam was interpreted at Station ID: [id number]. NOTE: For mammograms, a report in lay terms will be sent to the patient. Approximately 15% of breast malignancies will not be visualized mammographically. In the management of a palpable breast mass, a negative mammogram must not discourage biopsy of a clinically suspicious lesion. Electronically Signed By: Alhaji parada/josseline:02/17/2021 08:44:19 copy to: AMANDA EDOUARD letter sent: Normal Exam ACR BI-RADS Category 2: Benign Finding(s) 3342F
== END ==
PROVIDERS: PCP Family Medicine; Referring Provider Family Medicine; Visit Provider Family Medicine
DX: Z12.31 Encounter for screening mammogram for malignant neoplasm of breast (principal); Z85.3 Personal history of malignant neoplasm of breast
CPT/HCPCS: 77063; 77067

== ENCOUNTER 2021-03-10 13:02 | Day surgery (SDC) | payer MEDICARE, OTHER, SELFPAY ==
[2021-03-10] VITALS (7 sets, daily range): BP systolic 114–149; BP diastolic 66–94; PULSE 60–77; RESP 12–16; TEMP 36.1–36.4; O2SAT 95–98; BMI 20.7
[2021-03-10] MEDS: LACTATED RINGERS 1,000 ML 200 ML IV (13:37)
[2021-03-10 13:38] LABS: COVID19 -Nasal RAPID Negative (Negative)
--- NOTE | 2021-03-10 13:57 | PM.PREOP ---
Pre-operative Note Interval Note History & Physical reviewed/Exam performed by Physician: Yes Changes to H&P: No
[2021-03-10] MEDS: LIDOCAINE 4% SOLN 50 ML 20 ML TOP (14:05)
[2021-03-10] MEDS: fentaNYL 250 MCG/5 ML INJ IV (14:06)
[2021-03-10] MEDS: MIDAZOLAM 5 MG/5 ML VIAL IV (14:06)
--- NOTE | 2021-03-10 14:13 | PM.OP.EGD ---
Operative Date/Time/Diagnoses Date of procedure: 03/10/21 Time of procedure: 14:13 Pre-op diagnosis: Odynophagia Post-op diagnosis: other (Proximal esophageal stricture) Procedure & Clinicians Study performed: Attempted EGD Same procedure as scheduled: Yes Indications: 85-year-old woman remote history of esophageal cancer treated by chemo and radiation only presents for esophageal odynophagia Surgeon: Mark Ford Procedure Notes Procedure in detail: Patient placed in left lateral decubitus position. Time out was performed. Procedural sedation was administered with Versed and Fentanyl. A bite block was placed. the scope was inserted into the mouth and advanced into the esophagus. At approximately 12 cm from the incisors the esophagus was is extremely narrowed I suspect from her previous radiation. There was no obvious mass here but I could barely make out the lumen beyond stricture. It was tight enough that I did not think it was safe to dilate this radiation induced stricture. She will be referred to thoracic surgery for further management. Specimen(s): none sent Complications: none Impression: upper esophageal sticture Post-procedure Plan for aftercare: referral to thoracic surgery Disposition: same day surgery
== END 2021-03-10 14:55 | disposition home or self-care (01) ==
PROVIDERS: PCP Family Medicine; Referring Provider Surgery; Visit Provider Surgery
PROC: 0DJ08ZZ Inspection of Upper Intestinal Tract, Via Natural or Artificial Opening Endoscopic (ICD-10-PCS; CPT 43235; principal; 2021-03-10 14:30)
DX: K22.2 Esophageal obstruction (principal); Z85.01 Personal history of malignant neoplasm of esophagus; I10 Essential (primary) hypertension; F41.9 Anxiety disorder, unspecified; F32.9 Major depressive disorder, single episode, unspecified
CPT/HCPCS: 43235; 87635; J2250; J3010

== ENCOUNTER → 2021-06-08 09:47 | Outpatient (CLI) | payer MEDICARE, OTHER, SELFPAY ==
[2021-06-08 12:16] LABS: Vitamin D 25 Hydroxy (D3) 17.1 ng/mL (30.0-100.0)
[2021-06-08 12:50] LABS: Vitamin B12 204 pg/mL (239-931)
== END ==
PROVIDERS: PCP Family Medicine; Referring Provider Physician Assistant; Visit Provider Physician Assistant
DX: M81.0 Age-related osteoporosis without current pathological fracture (principal); R53.83 Other fatigue
CPT/HCPCS: 36415; 82306; 82607

== ENCOUNTER 2021-09-02 06:31 | Emergency (ER) | payer MEDICARE, OTHER, SELFPAY ==
[2021-09-02] VITALS (8 sets, daily range): BP systolic 143–182; BP diastolic 79–95; PULSE 65–80; RESP 18–20; TEMP 36.3; O2SAT 93–99
--- NOTE | 2021-09-02 06:49 | DI.RAD.S_ITS ---
PROCEDURE: XR ACUTE ABDOMEN SERIES INDICATIONS: N/V abd pain TECHNIQUE: One view chest and two views of the abdomen were acquired. COMPARISON: [facility], CT, CT ZAMORA, 05/07/2018, 14:43. FINDINGS: Surgical changes and devices: Left breast clips. Chest: Lungs are clear. Heart size is normal. No pleural effusions. No pneumoperitoneum. Abdomen: Bowel gas pattern is normal. No suspicious calcifications. Visualized solid organ contours appear normal. Bones: No suspicious bony lesions. Thoracic spine vertebroplasty. IMPRESSION: No acute cardiopulmonary abnormality. Nonobstructive bowel gas pattern. If clinically indicated consider CT abdomen pelvis for further evaluation. Dictated by: Leon Zacarias M.D. on 09/02/2021 at 8:06 Approved by: Leon Zacarias M.D. on 09/02/2021 at 8:09
[2021-09-02 06:55] LABS: Add Manual Diff / Slide Review NO; Basophils Absolute Auto 100 /uL (0-100); Basophils Percent Auto 1.2 % (0-2); Eosinophils Absolute Auto 100 /uL (0-450); Eosinophils Percent Auto 1.8 % (2-4); Hematocrit 43.2 % (36-46); Lymphocytes Absolute Auto 900 /uL (1100-4500); Lymphocytes Percent Auto 20.9 % (25-40); Mean Corpuscular HGB Conc 34.8 % (30-36); Mean Corpuscular Hemoglobin 30.9 PG (26-34); Mean Corpuscular Volume 88.9 fL (80-100); Monocytes Absolute Auto 400 /uL (0-900); Monocytes Percent Auto 8.2 % (3-14); Neutrophils Absolute Auto 3000 /uL (1500-7000); Neutrophils Percent Auto 67.9 % (50-75); Platelet Count 212 X10^3/uL (150-400); Red Blood Cell Count 4.86 X10^6/uL (4.0-5.2); White Blood Cell Count 4.4 X10^3/uL (4.5-11.0)
[2021-09-02] MEDS: SODIUM CHLORIDE 0.9% 1,000 ML 1000 ML IV (06:59)
[2021-09-02] MEDS: ONDANSETRON 4 MG/2 ML INJ IV (06:59)
--- NOTE | 2021-09-02 07:14 | ED.NAVMDI ---
HPI - Nausea/Vomiting/Diarrhea General Chief complaint: Nausea/Vomiting/Diarrhea Stated complaint: doesnt feel good/cancer survior/feels like Time Seen by Provider: 09/02/21 06:47 Source: patient and family Mode of arrival: Ambulatory History of Present Illness HPI Narrative: This is an 86-year-old female with prior esophageal cancer, lumpectomy, hypertension and grief. Patient's 6 months ago. She has had persistent nausea for several months. She denies any new chest pain or shortness of breath, no fevers or chills. She has had some chronic low back pain which she states is not new and relates lifting things in her backyard. She denies any dysuria, urgency or frequency. No diarrhea constipation. No vaginal bleeding or discharge. Patient did have some vomiting overnight which is atypical. Patient states that appear to be bile. She had chemo and radiation related to her esophageal cancer but no surgical intervention. She was taking lorazepam as needed under physician had her stop this 2 days ago and started her on escitalopram. Patient is also on metoprolol daily. She had lumpectomy but denies other prior surgeries. Patient does have some allergies to medications. Former smoker, occasional alcohol, no illicit. Her primary care is Dr. Treviño. She is accompanied by her son. Related Data Home Medications Medication Instructions Recorded Confirmed [id number]-Vi-xhzw-minerals 18 1 tab PO DAILY 02/24/21 08/30/21 mg-0.4 mg tablet Previous Rx's Medication Instructions Recorded triamcinolone acetonide 0.1 % 1 applic topical DAILY #30 grams 04/19/20 topical ointment cyanocobalamin (vitamin B-12) 1,000 mcg IM QMONTH #1 mL 06/08/21 1,000 mcg/mL injection solution metoprolol succinate 50 mg See Rx Instructions .Route 06/27/21 tablet,extended release 24 hr .COMPLEX #90 tabs lorazepam 0.5 mg tablet 0.5 mg PO BID PRN Anxiety #30 tabs 08/11/21 escitalopram oxalate 5 mg tablet 5 mg PO DAILY #30 tabs 08/30/21 ondansetron 4 mg disintegrating 4 mg PO Q6H PRN nausea and 09/02/21 tablet vomiting #10 tabs Allergies Allergy/AdvReac Type Severity Reaction Status Date / Time diazepam Allergy Mild ITCHING, Verified 06/07/21 15:57 REDNESS penicillin G Allergy Mild ITCHING, Verified 06/07/21 15:57 REDNESS simvastatin Allergy Mild TIRED AND Verified 06/07/21 15:57 ACHY Sulfa (Sulfonamide Allergy Mild ITCHING Verified 06/07/21 15:57 Antibiotics) REDNESS Review of Systems Review of Systems ROS Unobtainable: All systems reviewed & are unremarkable except as noted in HPI and below Patient History Medical History Anxiety Breast cancer Compression fracture of thoracic vertebra (04/27/14) Depression Diverticulitis Esophageal cancer HTN (hypertension) Hx of esophageal malignancy (~2013) Insomnia Kyphosis Surgical History Hx of kyphoplasty (05/29/14) Hx of lumpectomy S/P total abdominal hysterectomy and bilateral salpingo-oophorectomy Status post appendectomy Status post hernia repair Status post tonsillectomy and adenoidectomy Family History Father Diabetes mellitus Gallstones Heart disease Mother Dementia Bladder cancer Stomach cancer Social History marital status: household members: friend(s) occupational status: previously employed Smoking Status: Former smoker alcohol intake: current substance use type: does not use Smoking Status: Former smoker alcohol intake frequency: a few times a month Substance Use Type: does not use Exam Narrative Exam Narrative: GENERAL: Alert and oriented x three, elderly female in mild distress. HEENT: Head normocephalic, atraumatic, EOMI, pupils reactive, face symmetric, moist mucous membranes NECK: Supple, full range of motion CARDIOVASCULAR: Regular rate and rhythm without murmurs, rubs or gallops. RESPIRATORY: Breath sounds equal bilaterally, no wheezes rales or rhonchi. No tachypnea accessory muscle use. ABDOMEN: Soft, nontender. Normoactive bowel sounds all 4 quadrants. No guarding or rebound, rigidity, no mass. Nondistended. : No CVA tenderness EXTREMITIES: Normal range of motion, no clubbing or edema. Neurovascularly intact NEUROLOGICAL: Cranial nerves II through XII grossly intact. Moving all extremities SKIN: Warm, dry, no petechiae, no rashes or lesions. Initial Vital Signs Initial Vital Signs: Vital Signs Temperature 97.3 F L 09/02/21 06:41 Pulse Rate 68 09/02/21 06:41 Respiratory Rate 20 09/02/21 06:41 Blood Pressure 182/95 H 09/02/21 06:41 Pulse Oximetry 93 09/02/21 06:41 Oxygen Delivery Method 09/02/21 06:41 Course Orders Ordered: Discontinued Medications Sodium Chloride (Normal Saline 0.9%) 1,000 mls @ 1,000 mls/hr IV BOLUS ONE Stop: 09/02/21 07:48 Last Infusion: 09/02/21 08:31 Dose: 0 mls/hr Documented By: Admin: 09/02/21 06:59 Dose: 1,000 mls/hr Documented By: ESTRELLA Ondansetron HCl (Ondansetron 4 Mg/2 Ml Inj) 4 mg IV NOW ONE Stop: 09/02/21 06:50 Last Admin: 09/02/21 06:59 Dose: 4 mg Documented By: ESTRELLA Reevaluation(s) Reevaluation #1: Patient does not have any complaint of nausea or vomiting currently. Review patient's findings today with her as well as her son who is at bedside. Often prescription for Zofran and need for follow-up with CT angiography which they expressed understanding. We discussed that SMA stenosis can cause ischemic bowel or got and that this is an emergency and and return precautions. Time: 10:31 Vital Signs Vital signs: Vital Signs - 8 hr 09/02/21 06:41 09/02/21 08:32 09/02/21 08:00 Temperature 97.3 F L Pulse Rate 68 72 72 Respiratory Rate 20 18 18 Blood Pressure 182/95 H 167/79 H 162/80 H Pulse Oximetry 93 99 98 Oxygen Delivery Method Room Air 09/02/21 07:30 09/02/21 08:38 09/02/21 08:39 Temperature Pulse Rate 65 69 68 Respiratory Rate 18 18 Blood Pressure 156/80 H Pulse Oximetry 98 93 94 Oxygen Delivery Method 09/02/21 08:39 09/02/21 09:00 09/02/21 09:00 Temperature Pulse Rate 69 Respiratory Rate 18 Blood Pressure 178/83 H 169/79 H Pulse Oximetry 98 Oxygen Delivery Method 09/02/21 10:16 Temperature Pulse Rate 80 Respiratory Rate 18 Blood Pressure 143/87 H Pulse Oximetry 97 Oxygen Delivery Method MDM - Nausea/Vomiting/Diarrhea Lab Data Result diagrams: 09/02/21 06:45 09/02/21 06:45 Labs: Lab Results 09/02/21 09/02/21 09/02/21 Range/Units 06:45 06:45 06:51 WBC 4.4 L (4.5-11.0) X10^3/uL RBC 4.86 (4.0-5.2) X10^6/uL Hgb 15.0 (12.0-16.0) g/dL Hct 43.2 (36-46) % MCV 88.9 (80-100) fL MCH 30.9 (26-34) PG MCHC 34.8 (30-36) % RDW 13.0 (11.6-14.8) % Plt Count 212 (150-400) X10^3/uL Neut % (Auto) 67.9 (50-75) % Lymph % (Auto) 20.9 L (25-40) % [place] % (Auto) 8.2 (3-14) % Eos % (Auto) 1.8 L (2-4) % Baso % (Auto) 1.2 (0-2) % Neut # (Auto) 3000 (5647-8071) /uL Lymph # (Auto) 900 L (5014-7219) /uL [place] # (Auto) 400 (0-900) /uL Eos # (Auto) 100 (0-450) /uL Baso # (Auto) 100 (0-100) /uL Sodium 137 (137-145) mmol/L Potassium 4.1 (3.4-5.1) mmol/L Chloride 103 (98-107) mmol/L Carbon Dioxide 27 (22-32) mmol/L BUN 9 (7-17) mg/dL Creatinine 0.65 (0.52-1.04) mg/dL Estimated GFR > 60 (>60) mL/min BUN/Creatinine Ratio 13.8 (6-22) Glucose 115 H (80-110) mg/dL Calcium 9.2 (8.4-10.2) mg/dL Total Bilirubin 1.1 (0.2-1.3) mg/dL AST 23 (14-36) IU/L ALT 13 (<35) IU/L Alkaline Phosphatase 56 (38-126) U/L Total Creatine Kinase 34 (30-135) U/L CK-MB (CK-2) TNP CK-MB (CK-2) Rel Index TNP Troponin I < 0.012 (0.01-0.034) ng/mL Total Protein 7.4 (6.3-8.2) g/dL Albumin 4.2 (3.5-5.0) g/dL Globulin 3.2 (1.7-4.1) g/dL Albumin/Globulin Ratio 1.3 (1.0-2.8) Lipase 195 (23-300) U/L Urine RBC (0-5/HPF) Urine WBC (0-5/HPF) Ur Squamous Epith Cells (0-5/HPF) Urine Bacteria (None) Ur Culture Indicated? SARS-CoV-2 (PCR) (Negative) 09/02/21 09/02/21 Range/Units 07:56 08:47 WBC (4.5-11.0) X10^3/uL RBC (4.0-5.2) X10^6/uL Hgb (12.0-16.0) g/dL Hct (36-46) % MCV (80-100) fL MCH (26-34) PG MCHC (30-36) % RDW (11.6-14.8) % Plt Count (150-400) X10^3/uL Neut % (Auto) (50-75) % Lymph % (Auto) (25-40) % [place] % (Auto) (3-14) % Eos % (Auto) (2-4) % Baso % (Auto) (0-2) % Neut # (Auto) (9081-0998) /uL Lymph # (Auto) (7040-2972) /uL [place] # (Auto) (0-900) /uL Eos # (Auto) (0-450) /uL Baso # (Auto) (0-100) /uL Sodium (137-145) mmol/L Potassium (3.4-5.1) mmol/L Chloride (98-107) mmol/L Carbon Dioxide (22-32) mmol/L BUN (7-17) mg/dL Creatinine (0.52-1.04) mg/dL Estimated GFR (>60) mL/min BUN/Creatinine Ratio (6-22) Glucose (80-110) mg/dL Calcium (8.4-10.2) mg/dL Total Bilirubin (0.2-1.3) mg/dL AST (14-36) IU/L ALT (<35) IU/L Alkaline Phosphatase (38-126) U/L Total Creatine Kinase (30-135) U/L CK-MB (CK-2) CK-MB (CK-2) Rel Index Troponin I (0.01-0.034) ng/mL Total Protein (6.3-8.2) g/dL Albumin (3.5-5.0) g/dL Globulin (1.7-4.1) g/dL Albumin/Globulin Ratio (1.0-2.8) Lipase (23-300) U/L Urine RBC None seen (0-5/HPF) Urine WBC 0-1/hpf (0-5/HPF) Ur Squamous Epith Cells 0-1 /hpf (0-5/HPF) Urine Bacteria Occasional (0-1) (None) Ur Culture Indicated? Cult not indicated SARS-CoV-2 (PCR) Negative (Negative) Urine Dip Bedside Urine Glucose Negative Bedside Urine Bilirubin - Negative Bedside Urine Ketone + 15 Urine Specific [place] 1.010 Bedside Urine Occult Blood - Negative Bedside Urine pH 7.5 Bedside Urine Protein - Negative Bedside Urine Urobilinogen 0.2 Bedside Urine Nitrite - Negative Bedside Urine Leukocytes - Negative Esterase Imaging Data Abdominal x-ray: Radiologist's Impression: [address] [address] XRay Report Signed Patient: Mera Morales MR#: [id number] : 1935 Acct:[id number] Age/Sex: 86 / F Date of Service: 09/02/21 Loc: ED Accession Number: [id number] ?? Procedure: XR acute abdomen series Ordering Provider: Jakob Vazquez D.O. PROCEDURE:? XR ACUTE ABDOMEN SERIES ? INDICATIONS:? N/V? abd pain ? TECHNIQUE:? One view chest and two views of the abdomen were acquired.? ? COMPARISON:? [facility], CT, CT ZAMORA, 05/07/2018, 14:43. ? FINDINGS:? ? Surgical changes and devices:? Left breast clips.? ? Chest:? Lungs are clear.? Heart size is normal.? No pleural effusions.? No pneumoperitoneum.? ? Abdomen:? Bowel gas pattern is normal.? No suspicious calcifications.? Visualized solid organ contours appear normal.? ? Bones:? No suspicious bony lesions.? Thoracic spine vertebroplasty.? ? IMPRESSION:? No acute cardiopulmonary abnormality. Nonobstructive bowel gas pattern. ? If clinically indicated consider CT abdomen pelvis for further evaluation. ? ? Dictated by: eLon Zacarias M.D. on 09/02/2021 at 8:06 ? ? Approved by: Leon Zacarias M.D. on 09/02/2021 at 8:09? CT scan - abdomen/pelvis: Radiologist's Impression: [address] [address] [address] Scan Report Signed Patient: Mera Morales MR#: [id number] : 1935 Acct:[id number] Age/Sex: 86 / F Date of Service: 09/02/21 Loc: ED Accession Number: [id number] ?? Procedure: CT abdomen pelvis w con Ordering Provider: Stefanie Lee D.O. PROCEDURE:? CT ABDOMEN PELVIS W CON ? INDICATIONS:? nausea for months, vomiting yesterday.? remote hx esopha ca and breast cancer. ? TECHNIQUE:? After the administration of intravenous contrast, axial sections acquired from the lung bases to the pubic symphysis.? Coronal and sagittal reformats were performed.? For radiation dose reduction, the following was used:? automated exposure control, adjustment of mA and/or kV according to patient size.? ? COMPARISON:? [facility], CT, ABDOMEN/PELVIS WITH CONTRAST, 05/31/2017, 11:04. ? FINDINGS:? Image quality:? Excellent.? ? Lung bases:? Unremarkable. Heart:? No significant findings. ? ABDOMEN: Liver:? Unremarkable.? ? Gallbladder:? Again noted is a noncalcified or faintly calcified gallstone.? No gallbladder wall thickening.? ? Biliary ducts:? Unremarkable.? ? Pancreas:? Unremarkable.? ? Spleen:? Unremarkable.? ? Adrenal Glands:? Unremarkable.? ? Kidneys and Ureters:? Unremarkable.? ? ? Stomach and Bowel:? Again noted is a large duodenal diverticulum containing fluid.? Small bowel is otherwise unremarkable.? Sigmoid diverticulosis without evidence of diverticulitis.? No abnormal thickened loops of bowel.? Peritoneum:? No abnormal intraperitoneal fluid.? No free air.? ? Ventral Wall: ? No hernias.? Abdominal Nodes:? No retroperitoneal or mesenteric adenopathy by size criteria.? Vessels:? Aorta and inferior vena cava are normal in size.? 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 ?MARYURI origin not well visualized.? Celiac is grossly patent.? There is some degree of bilateral renal artery stenosis. ? PELVIS: Pelvic Organs:? Uterus is surgically absent..? ? Bladder:? Unremarkable.? ? Pelvic Nodes: No enlarged lymph nodes.? Miscellaneous: No hernias are seen. ? ? ? Bones:? Unremarkable.? IMPRESSION:? ? 1. No evidence of metastatic disease in the abdomen and pelvis. ? 2. No evidence of acute abdominal process. ? 3. Cholelithiasis. ? 4. 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 In the correct clinical setting, this may potentially correlate with signs and symptoms of chronic mesenteric ischemia. ? 5. There is at least some degree of bilateral renal artery stenosis. ? Comment:? Consider CT angiography of the abdomen and pelvis on a nonemergent basis to evaluate the severity of SMA stenosis (if symptoms suggest chronic mesenteric ischemia as a possible entity).? The severity of bilateral renal artery stenosis could be evaluated at that time. ? ? Dictated by: Isidro Whitley M.D. on 09/02/2021 at 9:42 ? ? Approved by: Isidro Whitley M.D. on 09/02/2021 at 9:49?? ECG Data Attestation: I personally reviewed and interpreted this ECG as follows: Prior ECG tracings: not available for review Interpretation: Sinus rhythm rate of 61 SC 152 QRS 8064 and QTC 422. No acute ST changes appreciated. No priors available for comparison. MDM Narrative Medical decision making narrative: This is an 86-year-old female comes emergency department with complaint of persistent nausea followed by vomiting last night. Patient has felt generally just unwell she also describes some mild lower back pain that is been persistent. She does have a history of cancer, hypertension and had her lorazepam stopped recently and started on an antidepressant for grief reaction from the loss of her 6 months ago. We did also discuss she has had 1 tele visit with a counselor which she did find very helpful and has some transportation issues in terms of establishing with outpatient counselor or grief group. She does have several friends who lost their spouses but states talking to them has not been very helpful. Patient's workup did not show any acute cause other than some mild ketones. With her persistent nausea patient's history of esophageal cancer CT imaging was obtained does not show any masses does show some cholelithiasis, SMA stenosis is suspected and likely and some bilateral renal artery partial stenosis. Patient is nontender her exam is not suspicious for an ischemic event today but she should have further workup. She is nontender in her right upper quadrant with reassuring labs otherwise. Patient and I discussed need for follow-up returns precautions. Discharge Plan Departure Patient Disposition: Home Clinical Impression: Nausea & vomiting Instructions: DI for Nausea -- Adult Activity Restrictions/Additional Instructions: Follow up with your physician for recheck You can take zofran 1 tablet every 6 hours as needed for nausea. Prescription sent to [facility] in [place]. Your imaging today does show gallstones but her labs and exam do not suggest this is the main cause of her symptoms today. It was also found that there appears to be some possible stenosis or narrowing of the blood vessel to her got called your SMA it is recommended you have an outpatient CT angio to further evaluate this. It is also noted that there was some degree of renal artery stenosis which can affect blood pressure watermelon inspector, this can be evaluated with the same imaging as above. Please return for fevers, no abdominal pain, persistent vomiting, black or bloody stools, passing out, new chest pain or shortness of breath or other new or concerning symptoms. Prescriptions: New ondansetron 4 mg tablet,disintegrating 4 mg PO Q6H PRN (Reason: nausea and vomiting) Qty: 10 0RF No Action triamcinolone acetonide 0.1 % ointment 1 applic topical DAILY Qty: 30 1RF escitalopram oxalate 5 mg tablet 5 mg PO DAILY Qty: 30 1RF cyanocobalamin (vitamin B-12) 1,000 mcg/mL solution 1,000 mcg IM QMONTH Qty: 1 6RF Rx Instructions: Give 1000 units IM once a month for 6 months - then 1000mcg oral with food daily thereafter metoprolol succinate 50 mg tablet extended release 24 hr See Rx Instructions .ROUTE .COMPLEX Qty: 90 0RF Dose Instruction: TAKE ONE TABLET BY MOUTH ONE TIME DAILY Rx Instructions: TAKE ONE TABLET BY MOUTH ONE TIME DAILY lorazepam 0.5 mg tablet 0.5 mg PO BID PRN (Reason: Anxiety) Qty: 30 0RF Rx Instructions: Take one tablet once or twice a day NEEDED for anxiety iwmnnbgkwiol-Dq-grzg-minerals 18-0.4 mg Tablet 1 tab PO DAILY Referrals: Isma Treviño MD [Primary Care Provider] - Visit Report Forms: Patient Portal/API
[2021-09-02 07:27] LABS: BUN Creatinine Ratio 13.8 (6-22); Blood Urea Nitrogen 9 mg/dL (7-17); Calcium 9.2 mg/dL (8.4-10.2); Carbon Dioxide 27 mmol/L (22-32); Chloride 103 mmol/L (98-107); Estimated Glomerular Filt Rate > 60 mL/min (>60); Glucose 115 mg/dL (80-110); Potassium 4.1 mmol/L (3.4-5.1); Sodium 137 mmol/L (137-145)
[2021-09-02 07:28] LABS: Alanine Aminotransferase 13 IU/L (<35); Albumin 4.2 g/dL (3.5-5.0); Albumin Globulin Ratio 1.3 (1.0-2.8); Alkaline Phosphatase 56 U/L (38-126); Aspartate Aminotransferase 23 IU/L (14-36); Bilirubin Total 1.1 mg/dL (0.2-1.3); Globulin 3.2 g/dL (1.7-4.1); HEMOLYSIS < 15 (0-50); Lipase 195 U/L (23-300); Total Protein 7.4 g/dL (6.3-8.2)
[2021-09-02 07:52] LABS: Creatine Kinase 34 U/L (30-135); Troponin I < 0.012 ng/mL (0.01-0.034)
[2021-09-02 08:19] LABS: COVID19 -Nasal RAPID Negative (Negative)
--- NOTE | 2021-09-02 08:56 | DI.CT.S_ITS ---
PROCEDURE: CT ABDOMEN PELVIS W CON INDICATIONS: nausea for months, vomiting yesterday. remote hx esopha ca and breast cancer. TECHNIQUE: After the administration of intravenous contrast, axial sections acquired from the lung bases to the pubic symphysis. Coronal and sagittal reformats were performed. For radiation dose reduction, the following was used: automated exposure control, adjustment of mA and/or kV according to patient size. COMPARISON: [facility], CT, ABDOMEN/PELVIS WITH CONTRAST, 05/31/2017, 11:04. FINDINGS: Image quality: Excellent. Lung bases: Unremarkable. Heart: No significant findings. ABDOMEN: Liver: Unremarkable. Gallbladder: Again noted is a noncalcified or faintly calcified gallstone. No gallbladder wall thickening. Biliary ducts: Unremarkable. Pancreas: Unremarkable. Spleen: Unremarkable. Adrenal Glands: Unremarkable. Kidneys and Ureters: Unremarkable. Stomach and Bowel: Again noted is a large duodenal diverticulum containing fluid. Small bowel is otherwise unremarkable. Sigmoid diverticulosis without evidence of diverticulitis. No abnormal thickened loops of bowel. Peritoneum: No abnormal intraperitoneal fluid. No free air. Ventral Wall: No hernias. Abdominal Nodes: No retroperitoneal or mesenteric adenopathy by size criteria. Vessels: Aorta and inferior vena cava are normal in size. 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 MARYURI origin not well visualized. Celiac is grossly patent. There is some degree of bilateral renal artery stenosis. PELVIS: Pelvic Organs: Uterus is surgically absent.. Bladder: Unremarkable. Pelvic Nodes: No enlarged lymph nodes. Miscellaneous: No hernias are seen. Bones: Unremarkable. IMPRESSION: 1. No evidence of metastatic disease in the abdomen and pelvis. 2. No evidence of acute abdominal process. 3. Cholelithiasis. 4. 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 In the correct clinical setting, this may potentially correlate with signs and symptoms of chronic mesenteric ischemia. 5. There is at least some degree of bilateral renal artery stenosis. Comment: Consider CT angiography of the abdomen and pelvis on a nonemergent basis to evaluate the severity of SMA stenosis (if symptoms suggest chronic mesenteric ischemia as a possible entity). The severity of bilateral renal artery stenosis could be evaluated at that time. Dictated by: Isidro Whitley M.D. on 09/02/2021 at 9:42 Approved by: Isidro Whitley M.D. on 09/02/2021 at 9:49
[2021-09-02 09:48] LABS: Bacteria Urine Occasional (0-1); Culture Indicated Urine Cult Not Indicated; RBC Urine None Seen (0-5/HPF); Squamous Epithelial Cell Urine 0-1 /HPF (0-5/HPF); WBC Urine 0-1/HPF (0-5/HPF)
--- NOTE | 2021-09-02 17:47 | CM.SWNOTE ---
[employer] f/u Note [employer] receives consult for [employer] f/u call from ED provider Dr. Lee. [employer] calls patient, she endorses that she is still not feeling 100% but is glad to hear that her labs came back normal after going to the ED earlier today. [employer] discusses some options of services available to her. Patient endorses that she doesn't drive and spends a lot of time at home, patient denies having a computer as well. Patient lists several natural supports in her life and states that her son and friend check in and visit with her almost daily. Patient endorses difficulty finding foods that she can tolerate but states that her medications are helping. Patient endorses depression related to the passing of her in March 2021 and managing residing in an empty house. Patient endorses she is not alone and has several supports including neighbors, friends and family. Patient states that she has upcoming PCP appt on 09/26/21 and another f/u appt for B12 injection later this month. Patient denies any further needs from [employer] at this time. [employer] encourages to talk to PCP about any concerns and return to ED if symptoms worsen. MEAGAN Hilton
== END 2021-09-02 10:40 | disposition home or self-care (01) ==
PROVIDERS: Emergency Medicine; Emergency Provider Emergency Medicine; PCP Family Medicine
DX: R11.2 Nausea with vomiting, unspecified (principal); R10.9 Unspecified abdominal pain; Z20.822 Contact with and (suspected) exposure to COVID-19; Z85.01 Personal history of malignant neoplasm of esophagus
CPT/HCPCS: 36415; 74022; 74177; 80053; 81003; 81015; 82550; 83690; 84484; 85025; 87635; 93005; 93010; 96361; 96374; 99284; C9803; J2405; Q9967

== ENCOUNTER 2021-09-05 08:12 | Emergency (ER) | payer MEDICARE, OTHER, SELFPAY ==
[2021-09-05 08:30] VITALS: BP 184/96; PULSE 79; RESP 18; TEMP 36.6; O2SAT 98; BMI 19.5
--- NOTE | 2021-09-05 08:47 | ED.GENADULT ---
HPI - General Adult General Chief complaint: Weakness Stated complaint: Weakness Time Seen by Provider: 09/05/21 08:16 Source: patient Mode of arrival: Ambulatory History of Present Illness HPI narrative: 86-year-old woman seen for 2nd time in the emergency department with complaints of weakness and loss of appetite. She has a history of esophageal cancer breast cancer with lumpectomy hypertension and most notably acute grief reaction after the loss of her in March of this year. She reports that she has no appetite she has been increasingly anxious she is feeling weak. She was seen by Shanelle Sepulveda and started on escitalopram on August 30. She was also given a prescription for Zofran for nausea it is unclear if she has used that. She had a prescription from the month previous for 5 mg of Ativan which she has used only sparingly. Workup in the emergency department on September 02 was exceptionally thorough including CT scan of the abdomen and pelvis. Workup was entirely unremarkable at that time. In the interval she continues to report poor sleep and yesterday apparently ate half in [place] muffin and a banana but she has been making a point of trying to drink water. Her son has been trying to encourage food notes that her refrigerator is fully stocked she is simply not interested in eating at this time. Related Data Home Medications Medication Instructions Recorded Confirmed [id number]-Gn-zruv-minerals 18 1 tab PO DAILY 02/24/21 08/30/21 mg-0.4 mg tablet Previous Rx's Medication Instructions Recorded triamcinolone acetonide 0.1 % 1 applic topical DAILY #30 grams 04/19/20 topical ointment cyanocobalamin (vitamin B-12) 1,000 mcg IM QMONTH #1 mL 06/08/21 1,000 mcg/mL injection solution metoprolol succinate 50 mg See Rx Instructions .Route 06/27/21 tablet,extended release 24 hr .COMPLEX #90 tabs lorazepam 0.5 mg tablet 0.5 mg PO BID PRN Anxiety #30 tabs 08/11/21 escitalopram oxalate 5 mg tablet 5 mg PO DAILY #30 tabs 08/30/21 ondansetron 4 mg disintegrating 4 mg PO Q6H PRN nausea and 09/02/21 tablet vomiting #10 tabs mirtazapine 7.5 mg tablet 7.5 mg PO BEDTIME #30 tabs 09/05/21 Allergies Allergy/AdvReac Type Severity Reaction Status Date / Time diazepam Allergy Mild ITCHING, Verified 09/05/21 08:45 REDNESS penicillin G Allergy Mild ITCHING, Verified 09/05/21 08:45 REDNESS simvastatin Allergy Mild TIRED AND Verified 09/05/21 08:45 ACHY Sulfa (Sulfonamide Allergy Mild ITCHING Verified 09/05/21 08:45 Antibiotics) REDNESS Review of Systems Review of Systems Narrative: Global weakness, shakiness, anhedonia, loss of appetite, insomnia, weight loss No reported chest pain, palpitations, lower extremity edema, headache. Remainder of complete review of systems is otherwise unremarkable except for that included in the HPI. Patient History Medical History Anxiety Breast cancer Compression fracture of thoracic vertebra (04/27/14) Depression Diverticulitis Esophageal cancer HTN (hypertension) Hx of esophageal malignancy (~2013) Insomnia Kyphosis Surgical History Hx of kyphoplasty (05/29/14) Hx of lumpectomy S/P total abdominal hysterectomy and bilateral salpingo-oophorectomy Status post appendectomy Status post hernia repair Status post tonsillectomy and adenoidectomy Family History Father Diabetes mellitus Gallstones Heart disease Mother Dementia Bladder cancer Stomach cancer Social History marital status: household members: friend(s) occupational status: previously employed Smoking Status: Former smoker alcohol intake: current substance use type: does not use Smoking Status: Former smoker alcohol intake frequency: a few times a month Substance Use Type: does not use Exam Initial Vital Signs Initial Vital Signs: Vital Signs Temperature 97.8 F 09/05/21 08:30 Pulse Rate 79 09/05/21 08:30 Respiratory Rate 18 09/05/21 08:30 Blood Pressure 184/96 H 09/05/21 08:30 Pulse Oximetry 98 09/05/21 08:30 Oxygen Delivery Method 09/05/21 08:30 General: Frail, chronically ill-appearing, anxious but able to participate fully with exam and history taking HEENT: Moist mucous membranes, normal sclera with reactive pupils, Neck: No JVD, supple Respiratory: Lungs are clear to auscultation, no wheezing no rales no rhonchi. Full and symmetrical air movement Cardiac: Regular rate and rhythm no murmurs no bruits Abdomen: Scaphoid, Soft, nontender, good bowel tones, no flank pain Skin: Warm and dry, no rashes Neurologic: Grossly neurologically intact with no obvious asymmetries or abnormalities Extremities: No trauma, well perfused Psych: Cooperative, poor insight, flat affect, poor eye contact. Normal speech fluency. Course Orders Ordered: ED Orders 09/05/21 09:06 Complete Blood Count AUTO DIFF Stat Comprehensive Metabolic Panel Stat Magnesium Stat Vital Signs Vital signs: Vital Signs - 8 hr 09/05/21 08:30 Temperature 97.8 F Pulse Rate 79 Respiratory Rate 18 Blood Pressure 184/96 H Pulse Oximetry 98 Oxygen Delivery Method Room Air Medical Decision Making Lab Data Result diagrams: 09/05/21 09:06 09/05/21 09:06 Labs: Lab Results 09/05/21 09/05/21 Range/Units 09:06 09:06 WBC 4.9 (4.5-11.0) X10^3/uL RBC 4.72 (4.0-5.2) X10^6/uL Hgb 14.5 (12.0-16.0) g/dL Hct 42.2 (36-46) % MCV 89.4 (80-100) fL MCH 30.8 (26-34) PG MCHC 34.4 (30-36) % RDW 13.1 (11.6-14.8) % Plt Count 206 (150-400) X10^3/uL Neut % (Auto) 76.1 H (50-75) % Lymph % (Auto) 15.0 L (25-40) % [place] % (Auto) 7.5 (3-14) % Eos % (Auto) 0.7 L (2-4) % Baso % (Auto) 0.7 (0-2) % Neut # (Auto) 3700 (9620-0229) /uL Lymph # (Auto) 700 L (3483-0147) /uL [place] # (Auto) 400 (0-900) /uL Eos # (Auto) 0 (0-450) /uL Baso # (Auto) 0 (0-100) /uL Sodium 136 L (137-145) mmol/L Potassium 3.8 (3.4-5.1) mmol/L Chloride 100 (98-107) mmol/L Carbon Dioxide 29 (22-32) mmol/L BUN 8 (7-17) mg/dL Creatinine 0.70 (0.52-1.04) mg/dL Estimated GFR > 60 (>60) mL/min BUN/Creatinine Ratio 11.4 (6-22) Glucose 104 (80-110) mg/dL Calcium 9.1 (8.4-10.2) mg/dL Magnesium 2.0 (1.6-2.3) mg/dL Total Bilirubin 0.9 (0.2-1.3) mg/dL AST 23 (14-36) IU/L ALT 12 (<35) IU/L Alkaline Phosphatase 53 (38-126) U/L Total Protein 6.9 (6.3-8.2) g/dL Albumin 4.2 (3.5-5.0) g/dL Globulin 2.7 (1.7-4.1) g/dL Albumin/Globulin Ratio 1.6 (1.0-2.8) Urine Dip Bedside Urine Glucose Negative Bedside Urine Bilirubin - Negative Bedside Urine Ketone - Negative Urine Specific [place] 1.025 Bedside Urine Occult Blood - Negative Bedside Urine pH 6.0 Bedside Urine Protein - Negative Bedside Urine Urobilinogen - Negative Bedside Urine Nitrite - Negative Bedside Urine Leukocytes - Negative Esterase Point of care testing: Urine Dip Bedside Urine Glucose Negative Bedside Urine Bilirubin - Negative Bedside Urine Ketone - Negative Urine Specific [place] 1.025 Bedside Urine Occult Blood - Negative Bedside Urine pH 6.0 Bedside Urine Protein - Negative Bedside Urine Urobilinogen - Negative Bedside Urine Nitrite - Negative Bedside Urine Leukocytes - Negative Esterase [facility] Narrative Medical decision making narrative: 86-year-old woman returns for a 2nd visit complaining of weakness and shakiness. Labs are entirely unremarkable and extensive imaging done on the suggest that additional imaging is not required at this time. I suspect that the majority of her symptoms are related to acute grief reaction with depression related to the loss of her in March. I think that the escitalopram is causing some dry mouth and additional adverse side effects. I do not know if this is contributing to her loss of appetite but it certainly can. At this time I do not think that there is a infectious etiology, recurrence of any of her cancers or alternate explanation for her symptoms today. Brief discussion with Dr. Diallo, Psychiatry regarding of medications suggestions. Will have her stop the escitalopram and begin mirtazapine 7.5 mg at HS to see if this helps her anxiety depression and slightly increases her appetite. Will ask social work to contact her later to see if there is additional services that might be helpful. Has scheduled an appointment with Dr. Treviño on September 22 at 1:30 p.m. for her to follow-up. Discharge Plan Departure Patient Disposition: Home Clinical Impression: Depression, Grief reaction with prolonged bereavement, Weakness, Abnormal weight loss Instructions: Coping with Grief Activity Restrictions/Additional Instructions: Thank you for coming in today I am sorry that you are suffering so much I am going to suggest some medication changes to see if this may help slightly. This will not fix the issues but I am hoping will help increase your appetite and decrease some of the shakiness. 1. stop the escitalipram 2. begin mirtazipine 7.5mg at bedtime -prescription has been electronically transmitted to [facility] for you to begin tonight 3. use ondansetron (nausea) as needed, and ativan (anxiety) as needed You have a follow up appointment with Dr Treviño on 09/22 at 1:30. please make sure you will note this on her calendar and keep this appointment. I am going to ask our renal social worker to give you call this afternoon to see if there is other resources we may be able to help with. Prescriptions: New mirtazapine 7.5 mg tablet 7.5 mg PO BEDTIME Qty: 30 1RF No Action triamcinolone acetonide 0.1 % ointment 1 applic topical DAILY Qty: 30 1RF escitalopram oxalate 5 mg tablet 5 mg PO DAILY Qty: 30 1RF cyanocobalamin (vitamin B-12) 1,000 mcg/mL solution 1,000 mcg IM QMONTH Qty: 1 6RF Rx Instructions: Give 1000 units IM once a month for 6 months - then 1000mcg oral with food daily thereafter metoprolol succinate 50 mg tablet extended release 24 hr See Rx Instructions .ROUTE .COMPLEX Qty: 90 0RF Dose Instruction: TAKE ONE TABLET BY MOUTH ONE TIME DAILY Rx Instructions: TAKE ONE TABLET BY MOUTH ONE TIME DAILY lorazepam 0.5 mg tablet 0.5 mg PO BID PRN (Reason: Anxiety) Qty: 30 0RF Rx Instructions: Take one tablet once or twice a day NEEDED for anxiety ondansetron 4 mg tablet,disintegrating 4 mg PO Q6H PRN (Reason: nausea and vomiting) Qty: 10 0RF jraaxxjszsrk-Ia-evyj-minerals 18-0.4 mg Tablet 1 tab PO DAILY Referrals: Isma Treviño MD [Primary Care Provider] -
[2021-09-05 09:15] LABS: Add Manual Diff / Slide Review NO; Basophils Absolute Auto 0 /uL (0-100); Basophils Percent Auto 0.7 % (0-2); Eosinophils Absolute Auto 0 /uL (0-450); Eosinophils Percent Auto 0.7 % (2-4); Hematocrit 42.2 % (36-46); Hemoglobin 14.5 g/dL (12.0-16.0); Lymphocytes Absolute Auto 700 /uL (1100-4500); Mean Corpuscular HGB Conc 34.4 % (30-36); Mean Corpuscular Hemoglobin 30.8 PG (26-34); Mean Corpuscular Volume 89.4 fL (80-100); Monocytes Absolute Auto 400 /uL (0-900); Monocytes Percent Auto 7.5 % (3-14); Neutrophils Absolute Auto 3700 /uL (1500-7000); Neutrophils Percent Auto 76.1 % (50-75); Platelet Count 206 X10^3/uL (150-400); Red Blood Cell Count 4.72 X10^6/uL (4.0-5.2); Red Cell Distribution Width 13.1 % (11.6-14.8); White Blood Cell Count 4.9 X10^3/uL (4.5-11.0)
[2021-09-05 09:27] LABS: Alanine Aminotransferase 12 IU/L (<35); Albumin 4.2 g/dL (3.5-5.0); Albumin Globulin Ratio 1.6 (1.0-2.8); Alkaline Phosphatase 53 U/L (38-126); Aspartate Aminotransferase 23 IU/L (14-36); BUN Creatinine Ratio 11.4 (6-22); Bilirubin Total 0.9 mg/dL (0.2-1.3); Blood Urea Nitrogen 8 mg/dL (7-17); Calcium 9.1 mg/dL (8.4-10.2); Carbon Dioxide 29 mmol/L (22-32); Chloride 100 mmol/L (98-107); Estimated Glomerular Filt Rate > 60 mL/min (>60); Globulin 2.7 g/dL (1.7-4.1); Glucose 104 mg/dL (80-110); HEMOLYSIS < 15 (0-50); Potassium 3.8 mmol/L (3.4-5.1); Sodium 136 mmol/L (137-145); Total Protein 6.9 g/dL (6.3-8.2)
--- NOTE | 2021-09-06 17:50 | CM.SWNOTE ---
WEAVER HAND LOOM f/u note WE[employer]ER [employer] LOOM receives consult from ED provider Dr. Krueger for f/u. WEAVER HAND LOOM calls patient and patient endorses she is feeling better and had more energy today. Patient endorses and confirms that she picked up prescribed medications from ED visit and started taking them as prescribed. Patient endorses she intends to make note of how she's feeling and report this to PCP at upcoming appt on 09/22/[address] Treviño. WEAVER HAND LOOM discusses that there are resources available to patient and patient endorses her preference to continue relying on friends and family supports that check in with her daily. Patient endorses that if she changes her mind she will reach out and call ED WE[employer]ER [employer] LO[employer]. MEAGAN Hilton
== END 2021-09-05 10:53 | disposition home or self-care (01) ==
PROVIDERS: Emergency Provider Emergency Medicine; PCP Family Medicine
DX: R53.1 Weakness (principal); F43.29 Adjustment disorder with other symptoms; R63.4 Abnormal weight loss; F32.9 Major depressive disorder, single episode, unspecified
CPT/HCPCS: 36415; 80053; 81003; 83735; 85025; 99281; 99283

== ENCOUNTER → 2021-11-16 08:10 | Outpatient (CLI) | payer MEDICARE, OTHER, SELFPAY ==
--- NOTE | 2021-11-16 08:13 | DI.MG.S_ITS ---
UNILATERAL LEFT DIGITAL DIAGNOSTIC MAMMOGRAM 3D/2D: 11/16/2021 CLINICAL: New left breast lump. Comparison is made to exams dated: 02/17/2021 mammogram, 02/13/2020 mammogram, and 02/11/2019 mammogram - [facility]. There are scattered areas of fibroglandular density in the left breast. Post-surgical changes in the left breast. No significant masses, calcifications, or other findings are seen in the left breast. IMPRESSION: INCOMPLETE: NEEDS ADDITIONAL IMAGING EVALUATION No suspicious abnormality demonstrated. Left breast ultrasound tarteted to the areas of reportedly palpable concern will be performed. This exam was interpreted at Station ID: [id number]. NOTE: For mammograms, a report in lay terms will be sent to the patient. Approximately 15% of breast malignancies will not be visualized mammographically. In the management of a palpable breast mass, a negative mammogram must not discourage biopsy of a clinically suspicious lesion. Electronically Signed By: Amanda Varner M.D. jr/:11/16/2021 11:49:05 copy to: AMANDA EDOUARD ACR BI-RADS Category 0: Incomplete [id number]
--- NOTE | 2021-11-16 08:13 | DI.US.S_ITS ---
LIMITED ULTRASOUND OF LEFT BREAST: 11/16/2021 CLINICAL: Palpable left breast lumps by physician. Comparison is made to exams dated: 11/16/2021 mammogram, 02/17/2021 mammogram, 02/13/2020 mammogram, 02/11/2019 mammogram, 03/20/2018 localization, and 03/20/2018 mammogram - [facility]. Color flow and real-time ultrasound of the left breast were performed. No significant abnormalities were seen sonographically in the left breast. IMPRESSION: NEGATIVE There is no sonographic evidence of malignancy. A 1 year screening mammogram is recommended. Future imaging is recommended as follows: 02/18/2022 screening mammogram. This exam was interpreted at Station ID: [id number]. Electronically Signed By: Amanda Varner M.D., jr/josseline:11/16/2021 11:49:21 copy to: AMANDA EDOUARD letter sent: Normal Exam Ultrasound BI-RADS: 1 Negative
== END ==
PROVIDERS: PCP Family Medicine; Referring Provider Internal Medicine Hematology & Oncology; Visit Provider Internal Medicine Hematology & Oncology
DX: Z85.3 Personal history of malignant neoplasm of breast (principal); R92.2 Inconclusive mammogram; N63.20 Unspecified lump in the left breast, unspecified quadrant
CPT/HCPCS: 76642; 77065; G0279

== ENCOUNTER → 2022-02-20 09:10 | Outpatient (CLI) | payer MEDICARE, OTHER, SELFPAY ==
--- NOTE | 2022-02-20 09:11 | DI.MG.S_ITS ---
BILATERAL DIGITAL SCREENING MAMMOGRAM 3D/2D WITH CAD POST LUMPECTOMY: 02/20/2022 CLINICAL: Routine screening. Personal history of left breast cancer. Comparison is made to exams dated: 02/17/2021 mammogram, 02/13/2020 mammogram, 02/11/2019 mammogram, and 05/27/2012 mammogram - [facility]. There are scattered areas of fibroglandular density in both breasts (category b / 25%-50% glandular tissue). Current study was also evaluated with a Computer Aided Detection (CAD) system. There are benign vascular calcifications in both breasts. There also are benign post operative findings in the left breast. No significant masses, calcifications, or other findings are seen in either breast. There has been no significant interval change. IMPRESSION: BENIGN There is no mammographic evidence of malignancy. A 1 year screening mammogram is recommended. Future imaging is recommended as follows: 11/17/2022 screening mammogram. This exam was interpreted at Station ID: [id number]. NOTE: For mammograms, a report in lay terms will be sent to the patient. Approximately 15% of breast malignancies will not be visualized mammographically. In the management of a palpable breast mass, a negative mammogram must not discourage biopsy of a clinically suspicious lesion. Electronically Signed By: Leon ayers/[email or web address]:02/20/2022 14:56:35 copy to: AMANDA EDOUARD letter sent: Normal Exam ACR BI-RADS Category 2: Benign Finding(s) 3342F
== END ==
PROVIDERS: PCP Family Medicine; Referring Provider Internal Medicine Hematology & Oncology; Visit Provider Internal Medicine Hematology & Oncology
DX: Z12.31 Encounter for screening mammogram for malignant neoplasm of breast (principal); Z85.3 Personal history of malignant neoplasm of breast
CPT/HCPCS: 77063; 77067

== ENCOUNTER → 2022-04-21 13:10 | Outpatient (CLI) | payer MEDICARE, OTHER, SELFPAY ==
--- NOTE | 2022-04-21 13:13 | DI.RAD.S_ITS ---
PROCEDURE: XR THORACIC SPINE 3V INDICATIONS: Thoracic back pain TECHNIQUE: 3 views of the thoracic spine were acquired. COMPARISON: [facility], CT, CT CHEST W CON, 01/17/2018, 9:50. [facility], CR, THORACIC SPINE 2 VIEWS, 05/29/2014, 13:41. FINDINGS: Bones: Vertebroplasty changes are again seen at the T7 level. Moderate compression deformity of T6 does not appear significantly changed when compared to the CT from 01/17/2018. There is exaggerated thoracic kyphosis. Mild dextroconvex curvature of the thoracic spine. Generalized osteopenia. No suspicious bony lesions. Twelve pairs of ribs are noted, and appear intact where visualized. Soft tissues: No paravertebral stripe thickening. Surgical clips are seen projecting over the left breast. IMPRESSION: Vertebroplasty changes at T7 and chronic moderate T6 compression fracture do not appear significantly changed when compared to the CT from 01/17/2018. on 04/21/2022 at 15:08 Approved by: Sudhir Butler M.D. on 04/21/2022 at 15:08
--- NOTE | 2022-04-21 13:13 | DI.RAD.S_ITS ---
PROCEDURE: FL BARIUM SWALLOW INDICATIONS: Pain with swallowing - Hx of radiation due to esoph cancer COMPARISON: None. FINDINGS: Function: There is normal esophageal peristalsis. No elicited gastroesophageal reflux. A barium pill became lodged in the mid esophagus and did not pass despite multiple sips of water. Morphology: There is stricture and irregularity of the mid esophagus involving a 7 centimeter segment which is a location where the barium pill became lodged. Limited images of the stomach demonstrate normal appearance. IMPRESSION: 7 centimeter stricture in the mid esophagus at which point the barium pill became lodged and did not pass. Recommend esophagoscopy. Dictated by: Ben Garcia M.D. on 04/21/2022 at 14:35 Approved by: Ben Garcia M.D. on 04/21/2022 at 14:38
== END ==
PROVIDERS: PCP Family Medicine; Referring Provider Physician Assistant; Visit Provider Physician Assistant
DX: K22.2 Esophageal obstruction (principal); R13.10 Dysphagia, unspecified; M40.00 Postural kyphosis, site unspecified; M48.54XA Collapsed vertebra, not elsewhere classified, thoracic region, initial encounter for fracture; M54.6 Pain in thoracic spine
CPT/HCPCS: 72072; 74220

== ENCOUNTER 2022-05-16 13:25 | Emergency (ER) | payer MEDICARE, OTHER, SELFPAY ==
[2022-05-16] VITALS (13 sets, daily range): BP systolic 140–176; BP diastolic 69–96; PULSE 68–93; RESP 14–16; TEMP 36.2; O2SAT 94–99
[2022-05-16 14:53] LABS: Add Manual Diff / Slide Review NO; Basophils Absolute Auto 0 /uL (0-100); Basophils Percent Auto 0.6 % (0-2); Eosinophils Absolute Auto 100 /uL (0-450); Hematocrit 38.7 % (36-46); Hemoglobin 13.1 g/dL (12.0-16.0); Lymphocytes Absolute Auto 1000 /uL (1100-4500); Lymphocytes Percent Auto 17.6 % (25-40); Mean Corpuscular HGB Conc 33.9 % (30-36); Mean Corpuscular Hemoglobin 29.7 PG (26-34); Mean Corpuscular Volume 87.7 fL (80-100); Monocytes Absolute Auto 500 /uL (0-900); Monocytes Percent Auto 8.6 % (3-14); Neutrophils Absolute Auto 4100 /uL (1500-7000); Neutrophils Percent Auto 72.2 % (50-75); Platelet Count 206 X10^3/uL (150-400); Red Blood Cell Count 4.41 X10^6/uL (4.0-5.2); Red Cell Distribution Width 13.5 % (11.6-14.8); White Blood Cell Count 5.7 X10^3/uL (4.5-11.0)
[2022-05-16 15:01] LABS: Alanine Aminotransferase 19 IU/L (<35); Albumin 3.8 g/dL (3.5-5.0); Albumin Globulin Ratio 1.3 (1.0-2.8); Alkaline Phosphatase 63 U/L (38-126); Aspartate Aminotransferase 27 IU/L (14-36); BUN Creatinine Ratio 27.5 (6-22); Bilirubin Total 0.5 mg/dL (0.2-1.3); Blood Urea Nitrogen 14 mg/dL (7-17); Carbon Dioxide 29 mmol/L (22-32); Chloride 104 mmol/L (98-107); Estimated Glomerular Filt Rate > 60 mL/min (>60); Glucose 93 mg/dL (80-110); HEMOLYSIS 47 (0-50); Lipase 132 U/L (23-300); Potassium 3.9 mmol/L (3.4-5.1); Sodium 141 mmol/L (137-145); Total Protein 6.8 g/dL (6.3-8.2)
--- NOTE | 2022-05-16 15:17 | DI.CT.S_ITS ---
PROCEDURE: CT CHEST W CON INDICATIONS: ?esophageal obtruction TECHNIQUE: After the administration of intravenous contrast, 5 mm thick sections acquired from the pulmonary apices to the posterior costophrenic angles. 1 mm axial lung, 5 mm thick coronal and sagittal reformats and 7 mm axial MIP were acquired. For radiation dose reduction, the following was used: automated exposure control, adjustment of mA and/or kV according to patient size. COMPARISON: [facility], CT, CT CHEST W CON, 01/17/2018, 9:50. FINDINGS: Image quality: Excellent. Lungs and pleura: No acute air space opacities. Bibasilar scarring. No pleural effusions or pneumothorax. Central and peripheral airways are patent and normal in caliber. Mediastinum: Heart size is normal. Calcification of the coronary vasculature is present. No pericardial effusion. No mediastinal or hilar adenopathy by size criteria. Thoracic aorta and central pulmonary arteries are normal in size. Esophagus is normal in caliber. Moderate thickening of the mid thoracic esophagus is present. No hiatal hernia. Bones and chest wall: No suspicious bony lesions. No vertebral body compression fractures. No axillary or supraclavicular adenopathy by size criteria. Thyroid gland is within normal limits . Severe thoracic kyphosis. Multilevel chronic appearing compression fractures within the thoracic spine. Abdomen: Visualized upper abdominal solid organs appear normal. Upper abdominal bowel loops are normal in caliber. IMPRESSION: 1. Thickening of the midthoracic esophagus, consistent with infection, inflammation, or neoplasm. Initial further assessment with endoscopy is recommended. 2. Coronary artery disease. Dictated by: Niru Herman M.D. on 05/16/2022 at 16:54 Approved by: Niru Herman M.D. on 05/16/2022 at 16:56
[2022-05-16] MEDS: SODIUM CHLORIDE 0.9% 1,000 ML 1000 ML IV (15:55)
--- NOTE | 2022-05-16 15:57 | ED.GIBLEED ---
HPI - GI Bleed <Marcia Capps PA-C - Last Filed: 05/16/22 20:34> General Chief complaint: Upper Respiratory Symptoms Stated complaint: can't swallow throat is closed Time Seen by Provider: 05/16/22 13:44 Source: patient and family Mode of arrival: Ambulatory History of Present Illness HPI Narrative: 86-year-old female with past medical history breast cancer, esophageal cancer, hyperlipidemia, hypertension, hypothyroidism, depression, anxiety presents to the ED today with dysphagia. Patient states that she has been having dysphagia with food due to the esophageal cancer, this morning ate some Danish muffins. A short while after this, patient attempted to drink some water which shot right back out according to her. Patient denies trouble breathing, patient endorses that she can swallow her oral secretions comfortably. Patient denies fever, chills, chest pain, shortness of breath, nausea, vomiting, abdominal pain, back pain, dysuria, lightheadedness, dizziness, syncope. Patient had a unsuccessful EGD on 05/16/2022, since the esophageal stricture was so tight that it was not safe to dilate. Patient states she has an appointment at the end of June with a specialist in [place], unclear what type of specialist, possibly thoracic surgeon. Related Data Home Medications Medication Instructions Recorded Confirmed [id number]-minerals 18 1 tab PO BEDTIME 02/24/21 05/16/22 mg-0.4 mg tablet metoprolol succinate 50 mg 50 mg PO BEDTIME 05/16/22 05/16/22 tablet,extended release 24 hr Previous Rx's Medication Instructions Recorded mirtazapine 15 mg tablet 15 mg PO BEDTIME #90 tabs 09/26/21 Allergies Allergy/AdvReac Type Severity Reaction Status Date / Time diazepam Allergy Mild ITCHING, Verified 05/16/22 19:47 REDNESS penicillin G Allergy Mild ITCHING, Verified 05/16/22 19:47 REDNESS simvastatin Allergy Mild TIRED AND Verified 05/16/22 19:47 ACHY Sulfa (Sulfonamide Allergy Mild ITCHING Verified 05/16/22 19:47 Antibiotics) REDNESS Review of Systems <Marcia Capps PA-C - Last Filed: 05/16/22 20:34> Review of Systems ROS Unobtainable: All systems reviewed & are unremarkable except as noted in HPI and below Constitutional Constitutional: Denies chills, Denies fatigue, Denies fever(s), Denies frequent falls, Denies lethargy and Denies weakness Eyes Eyes: Denies change in vision, Denies eye discharge, Denies irritation and Denies loss of vision ENT Ears, Nose, Mouth, and Throat: Denies change in voice, Denies dizziness, Denies neck pain, Denies sore throat and Denies throat swelling Comments: Trouble swallowing water Cardiovascular Cardiovascular: Denies chest pain, Denies irregular heart rhythm, Denies lightheadedness, Denies palpitations, Denies dyspnea, Denies dyspnea on exertion and Denies orthopnea Respiratory Respiratory: Denies cough, Denies dyspnea, Denies dyspnea on exertion and Denies wheezing Gastrointestinal Gastrointestinal: Denies abdominal pain, Denies change in bowel habits, Denies diarrhea, Denies nausea and Denies vomiting Genitourinary Genitourinary: Denies hematuria, Denies flank pain, Denies urinary incontinence and Denies urinary urgency Musculoskeletal Musculoskeletal: Denies back pain, Denies muscle weakness, Denies neck pain, Denies numbness and Denies tingling Integumentary/Breasts Skin/Breast: Denies pruritus, Denies erythema, Denies rash and Denies wounds Neurologic Neurologic: Denies behavioral changes, Denies confusion, Denies dizziness, Denies frequent falls, Denies loss of vision, Denies numbness, Denies tingling and Denies weakness Psychiatric Psychiatric: Denies anxiety, Denies behavioral changes, Denies confusion, Denies depression, Denies homicidal ideation and Denies suicidal ideation Endocrine Endocrine: Denies fatigue, Denies flushing and Denies palpitations Hematologic/Lymphatic Hematologic/Lymphatic: Denies easy bruising Allergic/Immunologic Allergic/Immunologic: Denies urticaria, Denies throat swelling and Denies wheezing Patient History <Marcia Capps PA-C - Last Filed: 05/16/22 20:34> Medical History Anxiety Breast cancer Compression fracture of thoracic vertebra (04/27/14) Depression Diverticulitis Esophageal cancer Esophageal cancer HTN (hypertension) Hx of esophageal malignancy (~2013) Insomnia Kyphosis Surgical History Hx of kyphoplasty (05/29/14) Hx of lumpectomy S/P total abdominal hysterectomy and bilateral salpingo-oophorectomy Status post appendectomy Status post hernia repair Status post tonsillectomy and adenoidectomy Family History Father Diabetes mellitus Gallstones Heart disease Mother Dementia Bladder cancer Stomach cancer Social History marital status: household members: friend(s) occupational status: previously employed Smoking Status: Former smoker alcohol intake: current substance use type: does not use Smoking Status: Former smoker alcohol intake frequency: a few times a month Substance Use Type: does not use Exam <Marcia Capps PA-C - Last Filed: 05/16/22 20:34> Narrative Exam Narrative: Const General:?cooperative, healthy appearing and comfortable HENMT Head:?normal to inspection Ears:?hearing grossly normal bilaterally Nose:?external nose normal Face and sinus:?normal facial exam and sinuses nontender Mouth:?oral mucosae normal; no trismus; no drooling Throat:?posterior oropharynx normal; airway is patent; no tracheal deviation Eyes General:?appearance normal, both eyes and all related structures Neck Neck:?normal visual inspection and no lymphadenopathy noted Resp Effort & Inspection:?normal respiratory effort Auscultation:?clear to auscultation bilaterally Cardio Rate:?regular rate Rhythm:?regular rhythm Neuro General:?patient alert, patient awake and patient oriented x3 Initial Vital Signs Initial Vital Signs: Vital Signs Temperature 97.1 F L 05/16/22 13:25 Pulse Rate 93 H 05/16/22 13:25 Respiratory Rate 14 05/16/22 13:25 Blood Pressure 157/95 H 05/16/22 13:25 Pulse Oximetry 99 05/16/22 13:25 Oxygen Delivery Method 05/16/22 13:25 <Rebecca Van DO - Last Filed: 05/17/22 02:31> Initial Vital Signs Initial Vital Signs: Vital Signs Temperature 97.1 F L 05/16/22 13:25 Pulse Rate 93 H 05/16/22 13:25 Respiratory Rate 14 05/16/22 13:25 Blood Pressure 157/95 H 05/16/22 13:25 Pulse Oximetry 99 05/16/22 13:25 Oxygen Delivery Method 05/16/22 13:25 Course <Marcia Capps PA-C - Last Filed: 05/16/22 20:34> Orders Ordered: ED Orders 05/16/22 18:24 COVID19 -Nasal RAPID/Pre-Proc Stat Discontinued Medications Diphenhydramine HCl (Diphenhydramine 50 Mg/Ml Vial) 25 mg IV NOW ONE Stop: 05/16/22 20:50 Last Admin: 05/16/22 20:57 Dose: 25 mg Documented By: LILIA Sodium Chloride (Normal Saline 0.9%) 1,000 mls @ 1,000 mls/hr IV BOLUS ONE Stop: 05/16/22 16:17 Last Infusion: 05/16/22 17:05 Dose: 0 mls/hr Documented By: Admin: 05/16/22 15:55 Dose: 1,000 mls/hr Documented By: HUMA Sodium Chloride (Normal Saline 0.9%) 1,000 mls @ 125 mls/hr IV CONT STA Stop: 05/17/22 04:33 Last Infusion: 05/16/22 23:22 Dose: 0 mls/hr Documented By: Admin: 05/16/22 21:35 Dose: 125 mls/hr Documented By: ESTRELLA Lorazepam (Lorazepam 2 Mg/Ml Inj) 1 mg IV Q4HR PRN PRN Reason: Anxiety Vital Signs Vital signs: Vital Signs - 8 hr 05/16/22 19:50 05/16/22 19:50 05/16/22 20:00 Pulse Rate 76 76 Blood Pressure 176/96 H Pulse Oximetry 94 95 Oxygen Delivery Method 05/16/22 20:30 05/16/22 20:59 05/16/22 20:59 Pulse Rate 75 74 Blood Pressure 155/83 H Pulse Oximetry 95 96 Oxygen Delivery Method 05/16/22 21:00 05/16/22 21:00 05/16/22 21:30 Pulse Rate 75 68 Blood Pressure 152/85 H Pulse Oximetry 96 95 Oxygen Delivery Method 05/16/22 22:00 05/16/22 22:00 05/16/22 22:30 Pulse Rate 74 Blood Pressure 140/69 148/72 H Pulse Oximetry 94 Oxygen Delivery Method 05/16/22 22:30 Pulse Rate 72 Blood Pressure Pulse Oximetry 94 Oxygen Delivery Method Room Air <DO Steph Willis Last Filed: 05/17/22 02:31> Orders Ordered: ED Orders 05/16/22 18:24 COVID19 -Nasal RAPID/Pre-Proc Stat Discontinued Medications Diphenhydramine HCl (Diphenhydramine 50 Mg/Ml Vial) 25 mg IV NOW ONE Stop: 05/16/22 20:50 Last Admin: 05/16/22 20:57 Dose: 25 mg Documented By: LILIA Sodium Chloride (Normal Saline 0.9%) 1,000 mls @ 1,000 mls/hr IV BOLUS ONE Stop: 05/16/22 16:17 Last Infusion: 05/16/22 17:05 Dose: 0 mls/hr Documented By: Admin: 05/16/22 15:55 Dose: 1,000 mls/hr Documented By: HUMA Sodium Chloride (Normal Saline 0.9%) 1,000 mls @ 125 mls/hr IV CONT STA Stop: 05/17/22 04:33 Last Infusion: 05/16/22 23:22 Dose: 0 mls/hr Documented By: Admin: 05/16/22 21:35 Dose: 125 mls/hr Documented By: ESTRELLA Lorazepam (Lorazepam 2 Mg/Ml Inj) 1 mg IV Q4HR PRN PRN Reason: Anxiety Vital Signs Vital signs: Vital Signs - 8 hr 05/16/22 19:50 05/16/22 19:50 05/16/22 20:00 Pulse Rate 76 76 Blood Pressure 176/96 H Pulse Oximetry 94 95 Oxygen Delivery Method 05/16/22 20:30 05/16/22 20:59 05/16/22 20:59 Pulse Rate 75 74 Blood Pressure 155/83 H Pulse Oximetry 95 96 Oxygen Delivery Method 05/16/22 21:00 05/16/22 21:00 05/16/22 21:30 Pulse Rate 75 68 Blood Pressure 152/85 H Pulse Oximetry 96 95 Oxygen Delivery Method 05/16/22 22:00 05/16/22 22:00 05/16/22 22:30 Pulse Rate 74 Blood Pressure 140/69 148/72 H Pulse Oximetry 94 Oxygen Delivery Method 05/16/22 22:30 Pulse Rate 72 Blood Pressure Pulse Oximetry 94 Oxygen Delivery Method Room Air MDM - GI Bleed <Marcia Capps PA-C - Last Filed: 05/16/22 20:34> Lab Data 05/16/22 14:35 05/16/22 14:35 Labs: Lab Results 05/16/22 05/16/22 05/16/22 Range/Units 14:35 14:35 18:24 WBC 5.7 (4.5-11.0) X10^3/uL RBC 4.41 (4.0-5.2) X10^6/uL Hgb 13.1 (12.0-16.0) g/dL Hct 38.7 (36-46) % MCV 87.7 (80-100) fL MCH 29.7 (26-34) PG MCHC 33.9 (30-36) % RDW 13.5 (11.6-14.8) % Plt Count 206 (150-400) X10^3/uL Neut % (Auto) 72.2 (50-75) % Lymph % (Auto) 17.6 L (25-40) % [place] % (Auto) 8.6 (3-14) % Eos % (Auto) 1.0 L (2-4) % Baso % (Auto) 0.6 (0-2) % Neut # (Auto) 4100 (3932-4137) /uL Lymph # (Auto) 1000 L (9722-7414) /uL [place] # (Auto) 500 (0-900) /uL Eos # (Auto) 100 (0-450) /uL Baso # (Auto) 0 (0-100) /uL Sodium 141 (137-145) mmol/L Potassium 3.9 (3.4-5.1) mmol/L Chloride 104 (98-107) mmol/L Carbon Dioxide 29 (22-32) mmol/L BUN 14 (7-17) mg/dL Creatinine 0.51 L (0.52-1.04) mg/dL Estimated GFR > 60 (>60) mL/min BUN/Creatinine Ratio 27.5 H (6-22) Glucose 93 (80-110) mg/dL Calcium 9.0 (8.4-10.2) mg/dL Total Bilirubin 0.5 (0.2-1.3) mg/dL AST 27 (14-36) IU/L ALT 19 (<35) IU/L Alkaline Phosphatase 63 (38-126) U/L Total Protein 6.8 (6.3-8.2) g/dL Albumin 3.8 (3.5-5.0) g/dL Globulin 3.0 (1.7-4.1) g/dL Albumin/Globulin Ratio 1.3 (1.0-2.8) Lipase 132 (23-300) U/L SARS-CoV-2 (PCR) Negative (Negative) Urine Dip Bedside Urine Glucose Negative Bedside Urine Bilirubin - Negative Bedside Urine Ketone - Negative Urine Specific [place] 1.010 Bedside Urine Occult Blood - Negative Bedside Urine pH 6.5 Bedside Urine Protein - Negative Bedside Urine Urobilinogen - Negative Bedside Urine Nitrite - Negative Bedside Urine Leukocytes - Negative Esterase MDM Narrative Medical decision making narrative: 86-year-old female with past medical history breast cancer, esophageal cancer, hyperlipidemia, hypertension, hypothyroidism, depression, anxiety presents to the ED today with dysphagia. Concern for obstructing food bolus versus worsening esophageal stricture versus other. Will obtain labs, CT chest. Will give IV fluids for dehydration. NPO. CT chest does not show a esophageal obstruction, shows thickening. Performed a swallow eval which patient was able to pass. However, patient felt a globus sensation and felt that the applesauce and water was still stuck. At this point, there is a significant risk of aspiration given patient's symptoms. Patient has had a unsuccessful barium swallow study in early April 2022. Patient has also had a unsuccessful EGD to dilate the esophagus in 03/08, whereby general surgery recommends a thoracic surgery intervention. Discussed findings with patient, will transfer to a location with Cardiothoracic surgery. [facility] was contacted, they are out of beds and would like us to reach out to other places. [facility] was contacted, they are Cardiothoracic surgery Service will reach out to us for a consult. Beds may not be available until tomorrow morning. Patient to stay NPO. Maintenance IV fluids. Patient given Ativan for anxiety. All pills to be held. Patient's care is transferred to Dr. Rebecca Van. <Rebecca Van, - Last Filed: 05/17/22 02:31> Lab Data Labs: Lab Results 05/16/22 05/16/22 05/16/22 Range/Units 14:35 14:35 18:24 WBC 5.7 (4.5-11.0) X10^3/uL RBC 4.41 (4.0-5.2) X10^6/uL Hgb 13.1 (12.0-16.0) g/dL Hct 38.7 (36-46) % MCV 87.7 (80-100) fL MCH 29.7 (26-34) PG MCHC 33.9 (30-36) % RDW 13.5 (11.6-14.8) % Plt Count 206 (150-400) X10^3/uL Neut % (Auto) 72.2 (50-75) % Lymph % (Auto) 17.6 L (25-40) % [place] % (Auto) 8.6 (3-14) % Eos % (Auto) 1.0 L (2-4) % Baso % (Auto) 0.6 (0-2) % Neut # (Auto) 4100 (6733-0695) /uL Lymph # (Auto) 1000 L (7113-4018) /uL [place] # (Auto) 500 (0-900) /uL Eos # (Auto) 100 (0-450) /uL Baso # (Auto) 0 (0-100) /uL Sodium 141 (137-145) mmol/L Potassium 3.9 (3.4-5.1) mmol/L Chloride 104 (98-107) mmol/L Carbon Dioxide 29 (22-32) mmol/L BUN 14 (7-17) mg/dL Creatinine 0.51 L (0.52-1.04) mg/dL Estimated GFR > 60 (>60) mL/min BUN/Creatinine Ratio 27.5 H (6-22) Glucose 93 (80-110) mg/dL Calcium 9.0 (8.4-10.2) mg/dL Total Bilirubin 0.5 (0.2-1.3) mg/dL AST 27 (14-36) IU/L ALT 19 (<35) IU/L Alkaline Phosphatase 63 (38-126) U/L Total Protein 6.8 (6.3-8.2) g/dL Albumin 3.8 (3.5-5.0) g/dL Globulin 3.0 (1.7-4.1) g/dL Albumin/Globulin Ratio 1.3 (1.0-2.8) Lipase 132 (23-300) U/L SARS-CoV-2 (PCR) Negative (Negative) Urine Dip Bedside Urine Glucose Negative Bedside Urine Bilirubin - Negative Bedside Urine Ketone - Negative Urine Specific [place] 1.010 Bedside Urine Occult Blood - Negative Bedside Urine pH 6.5 Bedside Urine Protein - Negative Bedside Urine Urobilinogen - Negative Bedside Urine Nitrite - Negative Bedside Urine Leukocytes - Negative Esterase MDM Narrative Medical decision making narrative: 86-year-old female with past medical history breast cancer, esophageal cancer, hyperlipidemia, hypertension, hypothyroidism, depression, anxiety presents to the ED today with dysphagia. Concern for obstructing food bolus versus worsening esophageal stricture versus other. Will obtain labs, CT chest. Will give IV fluids for dehydration. NPO. CT chest does not show a esophageal obstruction, shows thickening. Performed a swallow eval which patient was able to pass. However, patient felt a globus sensation and felt that the applesauce and water was still stuck. At this point, there is a significant risk of aspiration given patient's symptoms. Patient has had a unsuccessful barium swallow study in early April 2022. Patient has also had a unsuccessful EGD to dilate the esophagus in 03/08, whereby general surgery recommends a thoracic surgery intervention. Discussed findings with patient, will transfer to a location with Cardiothoracic surgery. [facility] was contacted, they are out of beds and would like us to reach out to other places. [facility] was contacted, they are Cardiothoracic surgery Service will reach out to us for a consult. Beds may not be available until tomorrow morning. Patient to stay NPO. Maintenance IV fluids. Patient given Ativan for anxiety. All pills to be held. Patient's care is transferred to Dr. Rebecca Van. I have seen and evaluated patient myself she is ambulatory to the restroom multiple times she is managing her own secretions. She is able to swallow applesauce and water however she feels like it gets stuck. No evidence of significant dehydration. Barium swallow from April 21 does show a 7 cm stricture in the mid esophagus. Patient gets most of her care at [facility]. He is been seen by Dr. Jerome patel over there couple of times it has been referred to Dr. Escudero the GI specialist. She does not have an appointment with Dr. Escudero until the end of June. 22:50 Dr. Escudero updated on patient's symptoms test results. He is given patient's information and is happy to see patient in the office tomorrow. There is no need to transfer his [place]. At this time there is no indication for admission or transfer. She is tolerating secretions not significantly dehydrated appropriate follow-up with specialists is made for tomorrow. I have called and explained to son multiple times that this is the plan. He does come to get her and understands the GI will be calling them tomorrow for follow-up. Also went over strict return precautions including inability to manage secretions vomiting and others. I discussed all findings with the patient and son, Education has been performed regarding treatment plan, diagnosis, warning signs and symptoms and all concerns have been addressed. Verbally agree with and understood all of the above. Discharge Plan Departure Patient Disposition: Home Clinical Impression: Esophageal stricture Instructions: DI for Esophageal Stricture Activity Restrictions/Additional Instructions: *You have been diagnosed with esophageal strictures *What to do: Do not eat solid food, Liquids only *Continue to take medications as directed *Follow up with your primary care provider in 2-3 days or call [phone] Dr. Escudero the GI office will call you tomorrow and she will be seen in the office tomorrow to come up with a plan *Return to ER if you should have dizziness lightheadedness falling not able to keep secretions down. or any new, worsening or concerning symptoms Prescriptions: No Action mirtazapine 15 mg tablet 15 mg PO BEDTIME Qty: 90 3RF rplkapdmhmcq-Oj-vtzz-minerals 18-0.4 mg Tablet 1 tab PO BEDTIME metoprolol succinate 50 mg tablet extended release 24 hr 50 mg PO BEDTIME Referrals: Nacho Escudero MD [Non-Staff] - Isma Treviño MD [Primary Care Provider] - Stand Alone Forms: Patient Portal/API
[2022-05-16 18:49] LABS: COVID19 -Nasal RAPID Negative (Negative)
--- NOTE | 2022-05-16 20:04 | PC.NURSE ---
Addendum entered by Marilyn Israel CNA 05/16/22 22:36: [facility]: no beds. [facility]. [facility]: no beds, put on waiting list. Spoke to Xiomara. Sent over and face sheet and images. Addendum entered by Marilyn Israel CNA 05/16/22 22:04: 4 Spoke to Toña at [facility] she is going to start making calls. She took patient information. Addendum entered by Marilyn Israel CNA 05/16/22 20:36: 2035 Just spoke to Marilin at [facility]. Their thorasic surgeon says no and to [place]. Original Note: SERVICE MEMBER note: During pass down was told told us to call [facility] and [facility] for possible transfer. Called [facility], they were going to call us back. Spoke to . Faxed over a facesheet and pushed images. Called [facility], spoke to Marilin. Faxed over facesheet and pushed images.
[2022-05-16] MEDS: diphenhydrAMINE 50 MG/ML VIAL 25 MG IV (20:57)
[2022-05-16] MEDS: SODIUM CHLORIDE 0.9% 1,000 ML 125 ML IV (21:35)
== END 2022-05-16 23:27 | disposition home or self-care (01) ==
PROVIDERS: Student in an Organized Health Care Education/Training Program; Emergency Provider Emergency Medicine; PCP Family Medicine
DX: K22.2 Esophageal obstruction (principal); Z20.822 Contact with and (suspected) exposure to COVID-19; Z85.01 Personal history of malignant neoplasm of esophagus
CPT/HCPCS: 36415; 71260; 80053; 81003; 83690; 85025; 87635; 96361; 96374; 99284; C9803; J1200

== ENCOUNTER 2022-06-26 12:49 | Emergency (ER) | payer MEDICARE, OTHER, SELFPAY ==
[2022-06-26] VITALS (16 sets, daily range): BP systolic 101–164; BP diastolic 58–72; PULSE 78–94; RESP 16–46; TEMP 36.6–36.7; O2SAT 91–98; BMI 18.5
--- NOTE | 2022-06-26 13:13 | ED.WEAKNESS ---
HPI - Weakness General Chief complaint: Weakness Stated complaint: weak, overall not feeling well, throwing up Time Seen by Provider: 06/26/22 13:12 History of Present Illness HPI Narrative: 86-year-old female former smoker with esophageal cancer and stent with history of depression and anxiety presents with her son for evaluation of chest and back pain with at least 1 episode of vomiting. She is a very poor historian and has a hard time telling us much more of the story but is otherwise at baseline per son who is at the bedside. She states that she started having back pain last night and vomited at least once. Today she is complaining of back pain which seems to be in her upper midline and also sometimes in her anterior chest. She states the pain seems like it probably gets worse when she moves and probably gets better with rest. She states that she just does not feel well in his generally weak. She denies any chest pressures, squeezing or heaviness. She denies any exertional symptoms. She was able to keep her typical breakfast foods down. She denies constipation or diarrhea. She denies any dysuria, frequency or urgency. Related Data Home Medications Medication Instructions Recorded Confirmed [id number] 18 1 tab PO BEDTIME 02/24/21 06/21/22 mg-0.4 mg tablet metoprolol succinate 50 mg 50 mg PO BEDTIME 05/16/22 06/21/22 tablet,extended release 24 hr pantoprazole 20 mg tablet,delayed 20 mg PO DAILY 06/08/22 06/21/22 release Previous Rx's Medication Instructions Recorded mirtazapine 15 mg tablet 15 mg PO BEDTIME #90 tabs 09/26/21 ondansetron 4 mg disintegrating 4 mg PO Q6H nausea #36 tabs 05/29/22 tablet lorazepam 0.5 mg tablet 0.5 mg PO BID PRN anxiety #30 tabs 06/01/22 morphine 15 mg tablet,extended 15 mg PO Q12H #60 tabs 06/21/22 release (MS Contin) morphine 15 mg tablet,extended 15 mg PO Q8H #30 tabs 06/21/22 release (MS Contin) oxycodone 5 mg capsule 5 mg PO Q8H PRN Pain (Scale Score 06/21/22 1-3) #20 caps ondansetron 4 mg disintegrating 4 mg PO TID-QID PRN nausea and 04/10/23 tablet vomiting #10 tabs Allergies Allergy/AdvReac Type Severity Reaction Status Date / Time diazepam Allergy Mild ITCHING, Verified 06/01/22 12:13 REDNESS penicillin G Allergy Mild ITCHING, Verified 06/01/22 12:13 REDNESS simvastatin Allergy Mild TIRED AND Verified 06/01/22 12:13 ACHY Sulfa (Sulfonamide Allergy Mild ITCHING Verified 06/01/22 12:13 Antibiotics) REDNESS Review of Systems Review of Systems Narrative: GENERAL: Denies chills, fatigue, malaise, fever, sweats. HEENT: Denies sinus pain, ear pain, sore throat, difficulty swallowing, dizziness. RESPIRATORY: See HPI CARDIOVASCULAR: See HPI GASTROINTESTINAL: See HPI : Denies dysuria, frequency, incontinence, hematuria, urinary retention. MUSCULOSKELETAL: See HPI SKIN: Denies rash, skin lesions, or other NEUROLOGIC: Denies weakness, headache, numbness, change in speech, confusion, seizures, incoordination. PSYCHIATRIC: No concerning psychosocial issues. 12 point review of systems is negative except for those stated above Patient History Medical History Anxiety Breast cancer Compression fracture of thoracic vertebra (04/27/14) Depression Diverticulitis Esophageal cancer Esophageal cancer HTN (hypertension) Hx of esophageal malignancy (~2013) Insomnia Kyphosis Surgical History Hx of kyphoplasty (05/29/14) Hx of lumpectomy S/P total abdominal hysterectomy and bilateral salpingo-oophorectomy Status post appendectomy Status post hernia repair Status post tonsillectomy and adenoidectomy Family History Father Diabetes mellitus Gallstones Heart disease Mother Dementia Bladder cancer Stomach cancer Social History marital status: household members: friend(s) occupational status: previously employed Smoking Status: Former smoker alcohol intake: current substance use type: does not use Smoking Status: Former smoker alcohol intake frequency: a few times a month Substance Use Type: does not use Exam Narrative Exam Narrative: GENERAL: [86] year old patient appears stated age.Pleasantly confused, evidence of chronic illness, quite thin HEAD: Atraumatic. Normocephalic. EYES: Pupils equal round and reactive. Extraocular motions intact. No scleral icterus. No injection or drainage. ENT: Nose without bleeding, purulent drainage. Throat without erythema, tonsillar hypertrophy or exudate. Airway patent. NECK: Trachea midline. Non tender CARDIOVASCULAR: Regular rate and rhythm without murmurs, gallops, or rubs. RESPIRATORY: Clear to auscultation. Breath sounds equal bilaterally. No wheezes, rales, or rhonchi. GASTROINTESTINAL: Abdomen soft, non-tender, nondistended. EXTREMITIES: No edema or joint tenderness. BACK: Nontender without deformity or crepitance. No flank tenderness. NEURO: Cranial nerves 2-12 grossly intact SKIN: No rash or erythema of visible areas Initial Vital Signs Initial Vital Signs: Vital Signs Pulse Rate 94 H 06/26/22 12:55 Pulse Oximetry 94 06/26/22 12:55 Course Orders Ordered: ED Orders 06/26/22 13:25 Complete Blood Count AUTO DIFF Stat Comprehensive Metabolic Panel Stat Magnesium Stat NT-proBNP (BNP-Adult 18+) Stat Troponin & CK Cardiac Panel Stat 06/26/22 13:41 XR acute abdomen series Stat EKG-12 Lead Stat 06/26/22 13:53 Covid-19 + FLU A/B + RSV - PCR Stat 06/26/22 15:06 CT angio chest PE protocol Stat Discontinued Medications Sodium Chloride (Normal Saline 0.9%) 1,000 mls @ 1,000 mls/hr IV BOLUS ONE Stop: 06/26/22 14:39 Last Infusion: 06/26/22 15:24 Dose: 0 mls/hr Documented By: Admin: 06/26/22 14:05 Dose: 1,000 mls/hr Documented By: CTS Ondansetron HCl (Ondansetron 4 Mg/2 Ml Inj) 4 mg IV NOW ONE Stop: 06/26/22 13:41 Last Admin: 06/26/22 14:04 Dose: 4 mg Documented By: CTS Pantoprazole Sodium (Pantoprazole 40 Mg Vial) 40 mg IV NOW ONE Stop: 06/26/22 13:41 Last Admin: 06/26/22 14:05 Dose: 40 mg Documented By: CTS Reevaluation(s) Reevaluation #1: patient tolerating orals, ambulatory in the department Vital Signs Vital signs: Vital Signs - 8 hr 06/26/22 13:01 06/26/22 12:55 06/26/22 12:56 Temperature 98.1 F Pulse Rate 89 94 H Respiratory Rate 16 Blood Pressure 138/70 138/70 Pulse Oximetry 95 94 Oxygen Delivery Method Room Air 06/26/22 12:56 06/26/22 13:00 06/26/22 13:30 Temperature Pulse Rate 90 89 Respiratory Rate Blood Pressure 107/65 Pulse Oximetry 94 95 Oxygen Delivery Method 06/26/22 13:30 06/26/22 14:00 06/26/22 14:00 Temperature Pulse Rate 83 80 Respiratory Rate 20 18 Blood Pressure 101/58 L Pulse Oximetry 92 91 Oxygen Delivery Method Room Air 06/26/22 14:30 06/26/22 15:00 06/26/22 15:30 Temperature Pulse Rate 81 79 84 Respiratory Rate 18 23 29 H Blood Pressure Pulse Oximetry 93 98 93 Oxygen Delivery Method Room Air 06/26/22 15:58 06/26/22 15:58 06/26/22 16:00 Temperature Pulse Rate 88 Respiratory Rate 26 H Blood Pressure 164/72 H 140/67 Pulse Oximetry 91 Oxygen Delivery Method 06/26/22 16:00 06/26/22 16:30 06/26/22 16:31 Temperature Pulse Rate 90 83 94 H Respiratory Rate 27 H 27 H 46 H Blood Pressure Pulse Oximetry 96 94 95 Oxygen Delivery Method 06/26/22 16:31 06/26/22 17:06 Temperature Pulse Rate 84 Respiratory Rate 24 Blood Pressure 142/63 H Pulse Oximetry 94 Oxygen Delivery Method Room Air MDM - Weakness Lab Data 06/26/22 13:25 06/26/22 13:25 Labs: Lab Results 06/26/22 06/26/22 06/26/22 Range/Units 13:25 13:25 13:53 WBC 8.1 (4.5-11.0) X10^3/uL RBC 4.01 (4.0-5.2) X10^6/uL Hgb 11.9 L (12.0-16.0) g/dL Hct 34.6 L (36-46) % MCV 86.3 (80-100) fL MCH 29.6 (26-34) PG MCHC 34.3 (30-36) % RDW 13.6 (11.6-14.8) % Plt Count 324 (150-400) X10^3/uL Neut % (Auto) 77.3 H (50-75) % Lymph % (Auto) 9.9 L (25-40) % [place] % (Auto) 9.3 (3-14) % Eos % (Auto) 2.8 (2-4) % Baso % (Auto) 0.7 (0-2) % Neut # (Auto) 6300 (9926-3070) /uL Lymph # (Auto) 800 L (2873-0034) /uL [place] # (Auto) 800 (0-900) /uL Eos # (Auto) 200 (0-450) /uL Baso # (Auto) 100 (0-100) /uL Sodium 132 L (137-145) mmol/L Potassium 4.2 (3.4-5.1) mmol/L Chloride 92 L (98-107) mmol/L Carbon Dioxide 34 H (22-32) mmol/L BUN 12 (7-17) mg/dL Creatinine 0.49 L (0.52-1.04) mg/dL Estimated GFR > 60 (>60) mL/min BUN/Creatinine Ratio 24.5 H (6-22) Glucose 134 H (80-110) mg/dL Calcium 8.8 (8.4-10.2) mg/dL Magnesium 1.7 (1.6-2.3) mg/dL Total Bilirubin 0.5 (0.2-1.3) mg/dL AST 25 (14-36) IU/L ALT 25 (<35) IU/L Alkaline Phosphatase 105 (38-126) U/L Total Creatine Kinase < 20 L (30-135) U/L CK-MB (CK-2) TNP CK-MB (CK-2) Rel Index TNP Troponin I < 0.012 (0.01-0.034) ng/mL NT-Pro-B Natriuret Pep 204 (<450) pg/mL Total Protein 6.4 (6.3-8.2) g/dL Albumin 3.1 L (3.5-5.0) g/dL Globulin 3.3 (1.7-4.1) g/dL Albumin/Globulin Ratio 0.9 L (1.0-2.8) SARS-CoV-2 (PCR) Negative (Negative) Influenza A (RT-PCR) Flu a negative (NEGATIVE) Influenza B (RT-PCR) Flu b negative (NEGATIVE) RSV (PCR) Negative (Negative) Urine Dip Bedside Urine Glucose Negative Bedside Urine Bilirubin - Negative Bedside Urine Ketone - Negative Urine Specific Severance 1.015 Bedside Urine Occult Blood - Negative Bedside Urine pH 6.0 Bedside Urine Protein - Negative Bedside Urine Urobilinogen - Negative Bedside Urine Nitrite - Negative Bedside Urine Leukocytes - Negative Esterase MDM Narrative Medical decision making narrative: CC: 86-year-old female with back pain and vomiting Complicating co-morbidities: Age, hypertension, esophageal cancer Data collected from: Patient Medical records reviewed: Prior notes reviewed in our EMR Differential considered, but not limited to: Musculoskeletal, metastases, bowel obstruction, pulmonary embolism, pneumonia versus other Exam documented above, pertinent findings include: Thin, no reproducible back pain, no reproducible chest pain, abdomen soft, thin with evidence of chronic disease Lab Test results independently reviewed as above. Pertinent findings: No leukocytosis or left shift, very slight dip in hemoglobin from baseline of 13 to 11.9, slight decrease in sodium, creatinine in at baseline glucose slightly elevated at 1 3 4 Independently reviewed EKG as above Imaging studies independently reviewed: Chest CT without any acute findings Treatments: Fluids, Protonix, Zofran Re-evaluations: Patient tolerating orals, ambulatory through the department, feeling much better Discussion: 86-year-old female with 1 episode of vomiting complains of some vague back pain and on occasion anterior chest pain. Her history and physical are reassuring, labs and imaging unremarkable. She has appropriate response to therapies and no indication at this time of any need for further evaluation. She understands and agrees with diagnosis and plan. Antiemetics sent to her pharmacy of choice ([facility]). Disposition: see below, along with detailed discharge instructions that have been reviewed with patient as well as indications for ED re-evaluation and additional outpatient follow up Discharge Plan Departure Patient Disposition: Home Clinical Impression: Back pain, Vomiting Instructions: DI for Vomiting -- Adult Activity Restrictions/Additional Instructions: *You have been diagnosed with [ back pain. Vomiting. Your history and physical exam, labs and imaging are very reassuring. There is no indication that further evaluation is needed at this time. ] *What to do: *Please continue to take your regular medications as directed. [x ] New medication prescriptions sent to your pharmacy: [ [facility]] [ ] New medication written as a paper prescription [ ] No new medications given *Please follow up with your primary care provider in 2-3 days, call for an appointment. Let them know you were seen in the Emergency Department and that we ask that you be seen in follow up. We will electronically transmit a record of today's note if your PCP is in our system *If you do not have a primary care provider please contact the [facility] Resource line at [phone]. They will ask some questions about your medical history and help get you set up with a doctor in the community. *Return to Emergency Department if you should have any new, worsening or concerning symptoms, such as [fever greater than 101 F, shaking chills, worsening pain, persistent vomiting or other bothersome symptoms] Prescriptions: New ondansetron 4 mg tablet,disintegrating 4 mg PO TID-QID PRN (Reason: nausea and vomiting) Qty: 10 0RF No Action mirtazapine 15 mg tablet 15 mg PO BEDTIME Qty: 90 3RF lorazepam 0.5 mg tablet 0.5 mg PO BID PRN (Reason: anxiety) Qty: 30 0RF [id number]-Wu-dbjm-minerals 18-0.4 mg Tablet 1 tab PO BEDTIME ondansetron 4 mg Tablet,Disintegrating 4 mg PO Q6H Qty: 36 0RF pantoprazole 20 mg Tablet,Delayed Release (Dr/Ec) 20 mg PO DAILY morphine [MS Contin] 15 mg Tablet Extended Release 15 mg PO Q8H Qty: 30 0RF morphine [MS Contin] 15 mg Tablet Extended Release 15 mg PO Q12H Qty: 60 0RF oxycodone 5 mg Capsule 5 mg PO Q8H PRN (Reason: Pain (Scale Score 1-3)) Qty: 20 0RF Rx Instructions: take as needed every 8 hours for pain metoprolol succinate 50 mg tablet extended release 24 hr 50 mg PO BEDTIME Referrals: Isma Treviño MD [Primary Care Provider] - Stand Alone Forms: Patient Portal/API
--- NOTE | 2022-06-26 13:41 | DI.RAD.S_ITS ---
PROCEDURE: XR ACUTE ABDOMEN SERIES INDICATIONS: Abdominal pain TECHNIQUE: One view chest and two views of the abdomen were acquired. COMPARISON: [facility], , XR ACUTE ABDOMEN SERIES, 09/02/2021, 7:41. FINDINGS: Surgical changes and devices: None. Chest: Left basilar atelectasis and infiltrate with blunting the left costophrenic angle. Diffuse chronic interstitial changes noted. Surgical clips present in the left axilla. Atherosclerotic vascular calcification noted in the aortic arch. Abdomen: Bowel gas pattern is normal. No suspicious calcifications. Visualized solid organ contours appear normal. Bones: Generalized decrease in osseous mineralization noted. IMPRESSION: Left pleural effusion with basilar atelectasis and infiltrate. Nonobstructive bowel gas pattern Approved by: Jose L Melgoza M.D. on 06/26/2022 at 15:09
[2022-06-26 13:49] LABS: Add Manual Diff / Slide Review NO; Basophils Absolute Auto 100 /uL (0-100); Basophils Percent Auto 0.7 % (0-2); Eosinophils Absolute Auto 200 /uL (0-450); Eosinophils Percent Auto 2.8 % (2-4); Hematocrit 34.6 % (36-46); Hemoglobin 11.9 g/dL (12.0-16.0); Lymphocytes Absolute Auto 800 /uL (1100-4500); Lymphocytes Percent Auto 9.9 % (25-40); Mean Corpuscular HGB Conc 34.3 % (30-36); Mean Corpuscular Hemoglobin 29.6 PG (26-34); Mean Corpuscular Volume 86.3 fL (80-100); Monocytes Absolute Auto 800 /uL (0-900); Monocytes Percent Auto 9.3 % (3-14); Neutrophils Absolute Auto 6300 /uL (1500-7000); Neutrophils Percent Auto 77.3 % (50-75); Platelet Count 324 X10^3/uL (150-400); Red Blood Cell Count 4.01 X10^6/uL (4.0-5.2); Red Cell Distribution Width 13.6 % (11.6-14.8); White Blood Cell Count 8.1 X10^3/uL (4.5-11.0)
[2022-06-26 13:53] LABS: Alanine Aminotransferase 25 IU/L (<35); Albumin 3.1 g/dL (3.5-5.0); Albumin Globulin Ratio 0.9 (1.0-2.8); Alkaline Phosphatase 105 U/L (38-126); Aspartate Aminotransferase 25 IU/L (14-36); BUN Creatinine Ratio 24.5 (6-22); Bilirubin Total 0.5 mg/dL (0.2-1.3); Blood Urea Nitrogen 12 mg/dL (7-17); Calcium 8.8 mg/dL (8.4-10.2); Carbon Dioxide 34 mmol/L (22-32); Chloride 92 mmol/L (98-107); Creatine Kinase < 20 U/L (30-135); Estimated Glomerular Filt Rate > 60 mL/min (>60); Globulin 3.3 g/dL (1.7-4.1); Glucose 134 mg/dL (80-110); HEMOLYSIS < 15 (0-50); Magnesium 1.7 mg/dL (1.6-2.3); Potassium 4.2 mmol/L (3.4-5.1); Sodium 132 mmol/L (137-145); Total Protein 6.4 g/dL (6.3-8.2)
[2022-06-26 14:04] LABS: NT-proBNP (BNP-Adult 18+) 204 pg/mL (<450); Troponin I < 0.012 ng/mL (0.01-0.034)
[2022-06-26] MEDS: ONDANSETRON 4 MG/2 ML INJ IV (14:04)
[2022-06-26] MEDS: SODIUM CHLORIDE 0.9% 1,000 ML 1000 ML IV (14:05)
[2022-06-26] MEDS: PANTOPRAZOLE 40 MG VIAL IV (14:05)
[2022-06-26 14:44] LABS: COVID-19 CEPHEID 4-PLEX PCR Negative (Negative); Influenza A - CEPHEID Flu A NEGATIVE (NEGATIVE); Influenza B - CEPHEID Flu B NEGATIVE (NEGATIVE); Respiratory Syncytial Virus Negative (Negative)
--- NOTE | 2022-06-26 15:06 | DI.CT.S_ITS ---
PROCEDURE: CT ANGIO CHEST PE PROTOCOL INDICATIONS: chest pain, back pain, shortness of breath TECHNIQUE: After the administration of intravenous contrast, 2 mm thick sections acquired from the pulmonary apices to the posterior costophrenic angles. 3-dimensional maximum intensity projection (MIP) coronal and sagittal reformats were then acquired through the thorax. For radiation dose reduction, the following was used: automated exposure control, adjustment of mA and/or kV according to patient size. COMPARISON: [facility], CT, CT CHEST W CON, 05/16/2022, 16:30. [facility], [place], PET NECK TO MID THIGH, 06/09/2022, 11:09. FINDINGS: Pulmonary arteries: Pulmonary arteries are normal in size, and demonstrate no intraluminal filling defects to suggest central pulmonary embolism. Lungs and pleura: Emphysema is present. Small bilateral pleural effusions are present, left larger than right. Both appear mildly increased since prior PET-CT. No lobar consolidation visualized. Minimal dependent predominantly ground-glass opacities in both lungs Mediastinum: Small pericardial effusion, not significantly changed. No thoracic aorta dissection identified. Diffuse esophageal wall thickening and a metallic esophageal stent are present as before. Ill-defined mediastinal and hilar lymph nodes redemonstrated, nonspecific. Bones and chest wall: Multilevel degenerative change of the visualized spine. Vertebroplasty cement at a midthoracic vertebral body as before. Other thoracic vertebral body fractures appear similar to before. Abdomen: Visualized upper abdominal solid organs appear normal in the early arterial phase of enhancement. IMPRESSION: 1. No pulmonary embolism identified. 2. Small bilateral pleural effusions, mildly increased. 3. Esophageal wall thickening and metallic esophageal stent as before. 4. Minimal dependent predominantly ground-glass opacities in both lungs, likely atelectasis, aspiration or pneumonia difficult to fully exclude. Dictated by: Sudhir Booth M.D. on 06/26/2022 at 17:16 Approved by: Sudhir Booth M.D. on 06/26/2022 at 17:30
--- NOTE | 2022-06-26 15:56 | PC.NURSE ---
Pt ambulated independently with steady gait.
== END 2022-06-26 18:04 | disposition home or self-care (01) ==
PROVIDERS: Emergency Provider Emergency Medicine; PCP Family Medicine
DX: M54.9 Dorsalgia, unspecified (principal); R11.10 Vomiting, unspecified; R07.9 Chest pain, unspecified; Z20.822 Contact with and (suspected) exposure to COVID-19
CPT/HCPCS: 0241U; 36415; 71275; 74022; 80053; 81003; 82550; 83735; 83880; 84484; 85025; 93005; 96361; 96374; 96375; 99284; C9113; J2405; Q9967

== ENCOUNTER → 2022-07-18 10:48 | Outpatient (CLI) | payer MEDICARE, OTHER, SELFPAY ==
[2022-07-18 11:04] VITALS: BMI 16.6
--- NOTE | 2022-07-18 11:04 | DIET.CONS ---
Dietary Consultation Note Assessment: 86y F [address] visit for help with nutrition status in context of oncological treatment for recurrent esophageal cancer with malnutrition. Pt attending visit with son, Morgan. Pt reports lack of appetite x5y which stemmed from first esophageal cancer diagnosis. Pt states appetite has not returned since then, pt unsure if she has a fear of eating now. Pt had workup this past winter for acute weight loss and difficulty swallowing which uncovered cancer recurrence. Pt had stent placed and is undergoing palliative treatment at [facility]. Pt referred to nutrition to support nutrition status as pt scheduled to continue treatment until November of this year per family report. Pt soft spoken, cachectic, frail with flat affect. Pts son's goal is for pt to increase PO intake to reverse weight loss. Pt perscribed marinol (4x/d), however pt stopped taking med due to spitting up, pts son eager for pt to try smaller dose. 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 Interventions: 1. Calculated pts EER for weight maintenance and weight repletion. 2. Educated pt and son that reduced appetite and fear of eating after esophageal narrowing and cancer tx is very common. Counselled on supportive nutrition therapy in easy to consume format. Pt to drink two cans Boost Very High Calorie very vanilla flavor daily which will meet her basic nutrition needs. Encouraged pt to continue eating her favorite foods of vietnamese muffins, soup, and sweet rolls as tolerated. 3. Pts son requests assistance from oncology to order ONS online. EER: 1,000-1500 kcals (25-30kcal/kg), 50g protein (1.2g/kg) Monitoring/Evaluations: recc continued weight monitoring and GOC regarding nutrition interventions at [facility]. Electronically Signed by: Katelin Lopez 07/18/22 11:04 Clinical Dietitian [address] [id number]
== END ==
PROVIDERS: Absent Provider Family Medicine; Family Provider Family Medicine; PCP Family Medicine; Referring Provider Internal Medicine Medical Oncology; Visit Provider Internal Medicine Medical Oncology
DX: R13.10 Dysphagia, unspecified (principal); E43 Unspecified severe protein-calorie malnutrition; Z68.1 Body mass index [BMI] 19.9 or less, adult; Z71.3 Dietary counseling and surveillance; C15.4 Malignant neoplasm of middle third of esophagus; E03.2 Hypothyroidism due to medicaments and other exogenous substances; Z85.3 Personal history of malignant neoplasm of breast; Z85.01 Personal history of malignant neoplasm of esophagus
CPT/HCPCS: 36415; 80053; 84443; 85025; 97802

== ENCOUNTER 2022-07-21 04:47 | Emergency (ER) | payer MEDICARE, OTHER, SELFPAY ==
[2022-07-21 04:50] VITALS: BP 160/76; PULSE 82; RESP 18; TEMP 36.3; O2SAT 96; BMI 21.7
[2022-07-21] MEDS: SODIUM CHLORIDE 0.9% 1,000 ML 1000 ML IV (07:12)
[2022-07-21 07:25] LABS: Alanine Aminotransferase 23 IU/L (<35); Albumin 3.5 g/dL (3.5-5.0); Albumin Globulin Ratio 1.1 (1.0-2.8); Alkaline Phosphatase 98 U/L (38-126); Aspartate Aminotransferase 30 IU/L (14-36); BUN Creatinine Ratio 18.8 (6-22); Bilirubin Total 0.7 mg/dL (0.2-1.3); Blood Urea Nitrogen 9 mg/dL (7-17); Carbon Dioxide 33 mmol/L (22-32); Chloride 87 mmol/L (98-107); Estimated Glomerular Filt Rate > 60 mL/min (>60); Globulin 3.2 g/dL (1.7-4.1); Glucose 119 mg/dL (80-110); HEMOLYSIS 18 (0-50); Lipase 165 U/L (23-300); Sodium 125 mmol/L (137-145); Total Protein 6.7 g/dL (6.3-8.2)
[2022-07-21 07:46] LABS: Add Manual Diff / Slide Review NO; Basophils Absolute Auto 0 /uL (0-100); Basophils Percent Auto 0.5 % (0-2); Eosinophils Absolute Auto 200 /uL (0-450); Eosinophils Percent Auto 2.7 % (2-4); Hematocrit 36.4 % (36-46); Hemoglobin 12.5 g/dL (12.0-16.0); Lymphocytes Absolute Auto 700 /uL (1100-4500); Lymphocytes Percent Auto 9.6 % (25-40); Mean Corpuscular HGB Conc 34.2 % (30-36); Mean Corpuscular Hemoglobin 28.5 PG (26-34); Mean Corpuscular Volume 83.3 fL (80-100); Monocytes Absolute Auto 700 /uL (0-900); Monocytes Percent Auto 10.1 % (3-14); Neutrophils Absolute Auto 5600 /uL (1500-7000); Neutrophils Percent Auto 77.1 % (50-75); Platelet Count 310 X10^3/uL (150-400); Red Blood Cell Count 4.37 X10^6/uL (4.0-5.2); Red Cell Distribution Width 13.1 % (11.6-14.8); White Blood Cell Count 7.3 X10^3/uL (4.5-11.0)
--- NOTE | 2022-07-21 08:12 | ED.GENADULT ---
HPI - General Adult General Chief complaint: Weakness Stated complaint: weakness Time Seen by Provider: 07/21/22 06:55 Source: patient and EMS Mode of arrival: EMS History of Present Illness HPI narrative: 86-year-old female who has a history of esophageal cancer who states that for the past couple days she is just felt very weak. She states she is no appetite. She tried to drink some ensure yesterday but vomited the drink. She does state that she takes medicines every day but she does not know what they are. She is unsure she has any nausea medication. She does know that she does not have any as needed nausea medicine. She reports no specific pain. No falls. No chest pain. She states that she just is not doing well in his not eating. She is here with a family friend. Her son who is normally her bobbin drier is out of town for the weekend. Related Data Home Medications Medication Instructions Recorded Confirmed urtxhvgiaiks-Dq-npyo-minerals 18 1 tab PO BEDTIME 02/24/21 06/21/22 mg-0.4 mg tablet metoprolol succinate 50 mg 50 mg PO BEDTIME 05/16/22 06/21/22 tablet,extended release 24 hr Previous Rx's Medication Instructions Recorded mirtazapine 15 mg tablet 15 mg PO BEDTIME #90 tabs 09/26/21 ondansetron 4 mg disintegrating 4 mg PO Q6H nausea #36 tabs 05/29/22 tablet morphine 15 mg tablet,extended 15 mg PO Q12H #60 tabs 06/21/22 release (MS Contin) morphine 15 mg tablet,extended 15 mg PO Q8H #30 tabs 06/21/22 release (MS Contin) oxycodone 5 mg capsule 5 mg PO Q8H PRN Pain (Scale Score 06/21/22 1-3) #20 caps ondansetron 4 mg disintegrating 4 mg PO TID-QID PRN nausea and 06/26/22 tablet vomiting #10 tabs pantoprazole 20 mg tablet,delayed 20 mg PO DAILY #30 tabs 06/28/22 release dronabinol 2.5 mg capsule (Marinol) 5 mg PO BID #60 caps 07/12/22 lorazepam 0.5 mg tablet 0.5 mg PO BID PRN anxiety #30 tabs 07/12/22 ondansetron 4 mg disintegrating 4 mg PO Q6H PRN nausea and 07/21/22 tablet vomiting #20 tabs Allergies Allergy/AdvReac Type Severity Reaction Status Date / Time diazepam Allergy Mild ITCHING, Verified 06/01/22 12:13 REDNESS penicillin G Allergy Mild ITCHING, Verified 06/01/22 12:13 REDNESS simvastatin Allergy Mild TIRED AND Verified 06/01/22 12:13 ACHY Sulfa (Sulfonamide Allergy Mild ITCHING Verified 06/01/22 12:13 Antibiotics) REDNESS Review of Systems Constitutional Constitutional: Reports system reviewed and no additional complaints, except as documented Cardiovascular Cardiovascular: Reports system reviewed and no additional complaints, except as documented Respiratory Respiratory: Reports system reviewed and no additional complaints, except as documented Gastrointestinal Gastrointestinal: Reports system reviewed and no additional complaints, except as documented Musculoskeletal Musculoskeletal: Reports system reviewed and no additional complaints, except as documented Integumentary/Breasts Skin/Breast: Reports system reviewed and no additional complaints, except as documented Neurologic Neurologic: Reports system reviewed and no additional complaints, except as documented Patient History Medical History Anxiety Breast cancer Compression fracture of thoracic vertebra (04/27/14) Depression Diverticulitis Esophageal cancer Esophageal cancer HTN (hypertension) Hx of esophageal malignancy (~2013) Insomnia Kyphosis Surgical History Hx of kyphoplasty (05/29/14) Hx of lumpectomy S/P total abdominal hysterectomy and bilateral salpingo-oophorectomy Status post appendectomy Status post hernia repair Status post tonsillectomy and adenoidectomy Family History Father Diabetes mellitus Gallstones Heart disease Mother Dementia Bladder cancer Stomach cancer Social History marital status: household members: friend(s) occupational status: previously employed Smoking Status: Former smoker alcohol intake: current substance use type: does not use Smoking Status: Former smoker alcohol intake frequency: a few times a month Substance Use Type: does not use Exam Initial Vital Signs Initial Vital Signs: Vital Signs Temperature 97.4 F L 07/21/22 04:50 Pulse Rate 82 07/21/22 04:50 Respiratory Rate 18 07/21/22 04:50 Blood Pressure 160/76 H 07/21/22 04:50 Pulse Oximetry 96 07/21/22 04:50 Oxygen Delivery Method Room Air 07/21/22 04:50 Const General: comfortable and No ill appearing HENMT Head: normal to inspection and normocephalic Resp Effort & Inspection: normal respiratory effort Auscultation: clear to auscultation bilaterally Cardio Rate: regular rate Rhythm: regular rhythm GI Inspection: normal to inspection Palpation: soft, No firm and No tender Skin General: no rashes or lesions noted Neuro General: patient alert, patient awake and moves all extremities Cognition: normal cognition Speech: speech normal Extrem General: normal to inspection and capillary refill normal Course Orders Ordered: ED Orders 07/21/22 05:00 CBC Auto Diff [Complete Blood Count AUTO DIFF] Stat CMP [Comprehensive Metabolic Panel] Stat Lipase Stat 07/21/22 06:56 EKG-12 Lead Stat Discontinued Medications Sodium Chloride (Normal Saline 0.9%) 1,000 mls @ 1,000 mls/hr IV BOLUS ONE Stop: 07/21/22 08:03 Last Admin: 07/21/22 07:12 Dose: 1,000 mls/hr Documented By: LUZ MARIA Vital Signs Vital signs: Vital Signs - 8 hr 07/21/22 04:50 Temperature 97.4 F L Pulse Rate 82 Respiratory Rate 18 Blood Pressure 160/76 H Pulse Oximetry 96 Oxygen Delivery Method Room Air Medical Decision Making Lab Data Lab results reviewed: Yes I reviewed the patient's lab results. 07/21/22 05:00 07/21/22 05:00 Labs: Lab Results 07/21/22 07/21/22 Range/Units 05:00 05:00 WBC 7.3 (4.5-11.0) X10^3/uL RBC 4.37 (4.0-5.2) X10^6/uL Hgb 12.5 (12.0-16.0) g/dL Hct 36.4 (36-46) % MCV 83.3 (80-100) fL MCH 28.5 (26-34) PG MCHC 34.2 (30-36) % RDW 13.1 (11.6-14.8) % Plt Count 310 (150-400) X10^3/uL Neut % (Auto) 77.1 H (50-75) % Lymph % (Auto) 9.6 L (25-40) % Dawes % (Auto) 10.1 (3-14) % Eos % (Auto) 2.7 (2-4) % Baso % (Auto) 0.5 (0-2) % Neut # (Auto) 5600 (6659-7899) /uL Lymph # (Auto) 700 L (5159-6834) /uL Dawes # (Auto) 700 (0-900) /uL Eos # (Auto) 200 (0-450) /uL Baso # (Auto) 0 (0-100) /uL Sodium 125 L (137-145) mmol/L Potassium 4.0 (3.4-5.1) mmol/L Chloride 87 L (98-107) mmol/L Carbon Dioxide 33 H (22-32) mmol/L BUN 9 (7-17) mg/dL Creatinine 0.48 L (0.52-1.04) mg/dL Estimated GFR > 60 (>60) mL/min BUN/Creatinine Ratio 18.8 (6-22) Glucose 119 H (80-110) mg/dL Calcium 9.0 (8.4-10.2) mg/dL Total Bilirubin 0.7 (0.2-1.3) mg/dL AST 30 (14-36) IU/L ALT 23 (<35) IU/L Alkaline Phosphatase 98 (38-126) U/L Total Protein 6.7 (6.3-8.2) g/dL Albumin 3.5 (3.5-5.0) g/dL Globulin 3.2 (1.7-4.1) g/dL Albumin/Globulin Ratio 1.1 (1.0-2.8) Lipase 165 (23-300) U/L MDM Narrative Medical decision making narrative: Patient does not have specific complaints other than feeling very fatigued and a loss of appetite. No falls. No chest pain. No shortness of breath. She is unsure if she has nausea medication at home. She is sure that she does not have any medicine that she takes as needed for nausea. The plan will be to give her a prescription for Zofran. I had a discussion with her in the family friend who is her bobbin drier for the weekend who is at bedside. Informed her that it is important that she eats despite her lack of appetite. We did discuss meal supplementation. We also discussed that she should contact her Oncology office as they do have social work available. The patient states she does have a social human services assistants that comes out to her house. Inform them that they should talk with the social human services assistants about information about assisted living. No indication for admission to the hospital. The patient would like to be discharged home. Discharge Plan Departure Patient Disposition: Home Clinical Impression: Fatigue, Loss of appetite Instructions: DI for Fatigue Activity Restrictions/Additional Instructions: It is important that you take all of your medications as directed. I did send a prescription for a nausea medication to [facility]. This is an as-needed medication that you can take if your feeling like you can not eat or are vomiting. Be sure that you are not already taking this medication in your daily medicines. I also recommend that you talk with your oncologist office and their social human services assistants about potential other living situations. Prescriptions: New ondansetron 4 mg tablet,disintegrating 4 mg PO Q6H PRN (Reason: nausea and vomiting) Qty: 20 0RF No Action mirtazapine 15 mg tablet 15 mg PO BEDTIME Qty: 90 3RF ondansetron 4 mg tablet,disintegrating 4 mg PO TID-QID PRN (Reason: nausea and vomiting) Qty: 10 0RF gahrclgxsjnv-Fv-ckvr-minerals 18-0.4 mg Tablet 1 tab PO BEDTIME ondansetron 4 mg Tablet,Disintegrating 4 mg PO Q6H Qty: 36 0RF morphine [MS Contin] 15 mg Tablet Extended Release 15 mg PO Q8H Qty: 30 0RF morphine [MS Contin] 15 mg Tablet Extended Release 15 mg PO Q12H Qty: 60 0RF oxycodone 5 mg Capsule 5 mg PO Q8H PRN (Reason: Pain (Scale Score 1-3)) Qty: 20 0RF Rx Instructions: take as needed every 8 hours for pain pantoprazole 20 mg Tablet,Delayed Release (Dr/Ec) 20 mg PO DAILY Qty: 30 1RF Rx Instructions: Take one tablet by mouth daily. dronabinol [Marinol] 2.5 mg Capsule 5 mg PO BID Qty: 60 2RF Rx Instructions: administer before lunch and evening meal/dinner lorazepam 0.5 mg tablet 0.5 mg PO BID PRN (Reason: anxiety) Qty: 30 0RF metoprolol succinate 50 mg tablet extended release 24 hr 50 mg PO BEDTIME Referrals: Isma Treviño MD [Primary Care Provider] - Stand Alone Forms: Patient Portal/API
[2022-07-21] MEDS: ONDANSETRON 4 MG/2 ML INJ IV (09:05)
[2022-07-21 09:07] VITALS: BP 156/75; PULSE 85; O2SAT 94
== END 2022-07-21 09:08 | disposition home or self-care (01) ==
PROVIDERS: Emergency Medicine; Emergency Provider Emergency Medicine; Family Provider Family Medicine; PCP Family Medicine
DX: R53.83 Other fatigue (principal); R63.0 Anorexia; R11.2 Nausea with vomiting, unspecified; Z85.01 Personal history of malignant neoplasm of esophagus
CPT/HCPCS: 36415; 80053; 83690; 85025; 96361; 96374; 99284; J2405

== ENCOUNTER 2022-08-14 09:44 | Inpatient (IN) | payer MEDICARE, OTHER, SELFPAY ==
[2022-08-14] VITALS (38 sets, daily range): BP systolic 81–114; BP diastolic 52–70; PULSE 93–115; RESP 17–37; TEMP 36.1–36.6; O2SAT 94–100; BMI 16.5
--- NOTE | 2022-08-14 10:07 | ED_ITS ---
HPI - Weakness General Chief complaint: Weakness Stated complaint: hypotension Time Seen by Provider: 08/14/22 09:56 Source: patient, family, EMS, RN notes reviewed and old records reviewed Mode of arrival: EMS Limitations: altered mental status History of Present Illness HPI Narrative: This is an 87-year-old female with terminal esophageal cancer currently on monoclonal infusion who had a metal stent placed in May of 2022. Patient has gone through chemoradiation with carboplatin and Taxol in 2013 had left breast cancer status post lumpectomy and completed radiation therapy of the left breast. She developed stricture, was found to have esophageal mass on EGD and had metal stent placed. Patient has been following with Dr. Lopez for Oncology. Patient has done states she is been having a lot of weight loss took a turn for the worse last . Sudden states she is been increasingly weak, she did have a fall today trying to get to the bathroom. No fevers. Patient has been complaining of pain in her upper chest region for some time. Patient is able to tell me her name, she can tell me it does hurt in her chest. She has had some hemoptysis starting yesterday, patient had 2 episodes of cou ghing while drinking water and bled through a paper towel. Son states it was soaked both times with bright red blood. They have noted melanotic stools. She is not had frequent diarrhea. She is not had abdominal pain. They state her mentation is off but she is been taking oral pain medications and lorazepam for comfort. Patient did complain of some dizziness, no witnessed syncope. She denies any shortness of breath. She denies any abdominal back or flank pain. She does seem to be slightly altered but can answer some questions. She defers lab work, she is unsure if there has been discussion about POLST status. There has been discussion about hospice and they are supposed to show up in the house tomorrow. Son states that they were contacted over the weekend. Son is at bedside he helps with decisions. He notes they do not want aggressive interventions they prefer comfort measures. This seems very appropriate based on patient's current medical situation. We discussed will hold off on labs or imaging at this time, they do not have hospice in place and I feel patient would probably benefit from hospitalization until it is in place if she does not before then. Patient, family and friend at bedside all seem to be on the same page. Dr. Treviño is patient's primary care physician. Related Data Home Medications Medication Instructions Recorded Confirmed pocstzyskxtj-Uq-gmoz-minerals 18 1 tab PO BEDTIME 02/24/21 06/21/22 mg-0.4 mg tablet metoprolol succinate 50 mg 50 mg PO BEDTIME 05/16/22 06/21/22 tablet,extended release 24 hr Previous Rx's Medication Instructions Recorded mirtazapine 15 mg tablet 15 mg PO BEDTIME #90 tabs 09/26/21 ondansetron 4 mg disintegrating 4 mg PO Q6H nausea #36 tabs 05/29/22 tablet morphine 15 mg tablet,extended 15 mg PO Q12H #60 tabs 06/21/22 release (MS Contin) morphine 15 mg tablet,extended 15 mg PO Q8H #30 tabs 06/21/22 release (MS Contin) ondansetron 4 mg disintegrating 4 mg PO TID-QID PRN nausea and 06/26/22 tablet vomiting #10 tabs pantoprazole 20 mg tablet,delayed 20 mg PO DAILY #30 tabs 06/28/22 release dronabinol 2.5 mg capsule (Marinol) 5 mg PO BID #60 caps 07/12/22 ondansetron 4 mg disintegrating 4 mg PO Q6H PRN nausea and 07/21/22 tablet vomiting #20 tabs lorazepam 0.5 mg tablet 0.5 mg PO BID PRN anxiety #30 tabs 08/01/22 lorazepam 1 mg tablet (Ativan) 1 mg PO Q6HR PRN Nausea #30 tabs 08/08/22 escitalopram oxalate 5 mg tablet 5 mg PO DAILY #90 tabs 08/09/22 oxycodone 5 mg capsule 5 mg PO Q8H PRN Pain (Scale Score 08/09/22 1-3) #30 caps Allergies Allergy/AdvReac Type Severity Reaction Status Date / Time diazepam Allergy Mild ITCHING, Verified 06/01/22 12:13 REDNESS penicillin G Allergy Mild ITCHING, Verified 06/01/22 12:13 REDNESS simvastatin Allergy Mild TIRED AND Verified 06/01/22 12:13 ACHY Sulfa (Sulfonamide Allergy Mild ITCHING Verified 06/01/22 12:13 Antibiotics) REDNESS Review of Systems Review of Systems ROS Unobtainable: All systems reviewed & are unremarkable except as noted in HPI and below Patient History Medical History Anxiety Breast cancer Compression fracture of thoracic vertebra (04/27/14) Depression Diverticulitis Esophageal cancer Esophageal cancer HTN (hypertension) Hx of esophageal malignancy (~2013) Insomnia Kyphosis Surgical History Hx of kyphoplasty (05/29/14) Hx of lumpectomy S/P total abdominal hysterectomy and bilateral salpingo-oophorectomy Status post appendectomy Status post hernia repair Status post tonsillectomy and adenoidectomy Family History Father Diabetes mellitus Gallstones Heart disease Mother Dementia Bladder cancer Stomach cancer Social History marital status: household members: family and friend(s) occupational status: previously employed Smoking Status: Former smoker alcohol intake: current substance use type: does not use Smoking Status: Former smoker alcohol intake frequency: a few times a month Substance Use Type: does not use Exam Narrative Exam Narrative: GEN: well nourished, well appearing female, alert and oriented x 3, patient appears to be in moderate distress. Pale. HEENT: Atraumatic, pupils are equal round reactive to light, extraocular movements are intact, nares are clear, there is no conjunctival pallor. Throat is clear without any exudates, erythema, tonsillar enlargement or uvular de viation, HEART: Regular rate and rhythm without murmur, clicks, rubs. pulses are equal in upper and lower extremities LUNGS:Lungs clear to auscultation, no wheezes, rales, crackles, chest moves symmetrically, no tachypnea. Patient does have frequent bright red blood 5-10 mL in mount that she seems to cough out. She has not had hard or aggressive cough your in the department. ABD:bowel sounds normal, soft, non-tender, no guarding, rebound, rigidity, no masses noted, no hepatosplenomegaly :No CVA tenderness MSCL: Non-tender, no muscle atrophy, generalized weakness. NEURO:CN 2-12 intact, sensation normal SKIN: Pale, no petechiae ecchymosis or other skin changes. Initial Vital Signs Initial Vital Signs: Vital Signs Pulse Rate 112 H 08/14/22 09:50 Blood Pressure 101/64 08/14/22 09:50 Course Orders Ordered: Sodium Chloride (Normal Saline 0.9%) 1,000 mls @ 21 mls/hr IV CONT ANGIE Last Admin: 08/14/22 12:49 Dose: 21 mls/hr Documented By: TLS Lorazepam (Lorazepam 2 Mg/Ml Inj) 1 mg IV Q1HR PRN PRN Reason: Agitation/Anxiety Last Admin: 08/14/22 17:29 Dose: 1 mg Documented By: CLL Morphine Sulfate (Morphine 2 Mg/Ml Inj) 2 mg IV Q2HR PRN PRN Reason: Pain, Moderate (4-6) Morphine Sulfate (Morphine 2 Mg/Ml Inj) 2 mg IV Q30MIN PRN PRN Reason: Pain/Dyspnea Naloxone HCl (Naloxone 0.4 Mg/Ml Vial) 0.2 mg IV Q2MIN PRN PRN Reason: Opiate Reversal Ondansetron HCl (Ondansetron 4 Mg/2 Ml Inj) 4 mg IV Q6HR PRN PRN Reason: Nausea And Vomiting Scopolamine (Scopolamine 1 Patch) 1 patch TOP Q72H PRN PRN Reason: Secretions Discontinued Medications Tranexamic Acid (Tranexamic Acid 1,000 Mg Vial) 1,000 mg INH NOW ONE Stop: 08/14/22 10:22 Last Admin: 08/14/22 10:44 Dose: 1,000 mg Documented By: RB Vital Signs Vital signs: Vital Signs - 8 hr 08/14/22 09:59 08/14/22 09:50 08/14/22 09:50 Temperature 97 F L Pulse Rate 110 H 112 H Respiratory Rate 24 Blood Pressure 101/64 101/64 Pulse Oximetry 98 Oxygen Delivery Method Nasal Cannula Oxygen Flow Rate 2 08/14/22 09:55 08/14/22 10:00 08/14/22 10:00 Temperature Pulse Rate 110 H 110 H Respiratory Rate Blood Pressure 97/58 L Pulse Oximetry 98 98 Oxygen Delivery Method Nasal Cannula Nasal Cannula Oxygen Flow Rate 2 2 08/14/22 10:05 08/14/22 10:10 08/14/22 10:15 Temperature Pulse Rate 107 H 108 H 109 H Respiratory Rate 29 H 29 H Blood Pressure Pulse Oximetry 97 97 98 Oxygen Delivery Method Nasal Cannula Nasal Cannula Nasal Cannula Oxygen Flow Rate 2 2 2 08/14/22 10:20 08/14/22 10:25 08/14/22 10:30 Temperature Pulse Rate 111 H 110 H Respiratory Rate Blood Pressure 86/61 L Pulse Oximetry 98 98 Oxygen Delivery Method Nasal Cannula Nasal Cannula Oxygen Flow Rate 2 2 08/14/22 10:30 08/14/22 10:35 08/14/22 10:40 Temperature Pulse Rate 111 H 112 H 113 H Respiratory Rate 30 H 28 H 31 H Blood Pressure Pulse Oximetry 98 97 98 Oxygen Delivery Method Nasal Cannula Nasal Cannula Oxygen Flow Rate 2 2 08/14/22 10:41 08/14/22 10:41 08/14/22 10:45 Temperature Pulse Rate 109 H 111 H Respiratory Rate 30 H 31 H Blood Pressure 97/59 L Pulse Oximetry 97 97 Oxygen Delivery Method Nasal Cannula Nasal Cannula Oxygen Flow Rate 2 2 08/14/22 10:46 08/14/22 10:46 08/14/22 10:50 Temperature Pulse Rate 110 H Respiratory Rate 30 H Blood Pressure 91/58 L 99/61 Pulse Oximetry 97 Oxygen Delivery Method Nasal Cannula Oxygen Flow Rate 2 08/14/22 10:50 Temperature Pulse Rate 111 H Respiratory Rate 33 H Blood Pressure Pulse Oximetry 99 Oxygen Delivery Method Nasal Cannula Oxygen Flow Rate 2 MDM - Weakness MDM Narrative Medical decision making narrative: This is an 87-year-old female who presents with complaint of hemoptysis increasing weakness and fall. Patient has known terminal esophageal cancer with a metallic stent she is had several small episodes of bright red hemoptysis here in the department. Suspect something is eroding through with the stent or soften J area. She is had black tarry stools so maybe going through the airway and/or the esophagus. She has not had any vomiting at home or present here but has persistent small amounts of bright red blood. Discussed with patient and family comfort measures she is DNR/DNI without any aggressive intervention. Discussed can do pain medication will try some antinausea medicine as needed, Tx a inhaler to see if this helps a little bit with the bleeding. No plan for blood transfusion patient deferred any blood workup. After discussion with eyad mobleyy will hold off on any imaging. I discussed with Dr. Treviño who accepts for comfort measures, we will continue to keep hospice in place and if patient has not before then can potentially return home. Dr. Treviño in the department saw and admitted patient. Discharge Plan Departure Patient Disposition: Admitted As Inpatient Clinical Impression: Hemoptysis, Esophageal cancer Admit Date/Time: 08/14/22 10:51 Admit Provider: Isma Treviño
[2022-08-14] MEDS: TRANEXAMIC ACID 1,000 MG VIAL 1000 MG INH (10:44)
--- NOTE | 2022-08-14 11:15 | PC.NURSE ---
When patient arrived during triage GCS was a 10. Family reports that she waxes and wains between being alert and orientated and being hard to arouse. During time of assessment patient was alert and orientated x 3 only missing time.
--- NOTE | 2022-08-14 12:04 | PM.HP.1 ---
History of Present Illness History of Present Illness Date Patient Seen: 08/14/22 Time Patient Seen: 12:04 Chief complaint: hypotension Narrative: 88-year-old female with a past medical history of esophageal cancer recurrent breast cancer depression hyperlipidemia hypothyroidism generalized anxiety disorder presents to the emergency department with coughing up and spitting up blood. Patient was diagnosed with squamous cell skin cancer in 2012 she underwent he male radiation therapy in late 2020 she developed difficulty with swallowing done on EGD showed severe stricture consistent with invasive moderately differentiated squamous cell carcinoma patient underwent palliative immunotherapy and radiation therapy for recurrent esophageal cancer. Patient presents to the emergency department with her son who has been primary caregiver. She has been on more comfort measure and palliative chemotherapy. He presented to the emergency department because she has been coughing up spitting up blood and having dark tarry stools on Sunday because of her advancing symptoms in based on patient wishes previously he reached out to hospice care they were unavailable to evaluate her at that time. Her symptoms progressed over the weekend and he brought her into the emergency department. Patient is responsive she says she is tired she is not in any pain. Son and family are bedside. They are wishing to proceed with the comfort care. They are concerned about the amount of bleeding that she is having and having her at home. After further discussion with patient and family will go ahead admit patient to the hospital for symptom management due to her esophageal cancer pain control. [facility] Medical History Anxiety Breast cancer Compression fracture of thoracic vertebra (04/27/14) Depression Diverticulitis Esophageal cancer Esophageal cancer HTN (hypertension) Hx of esophageal malignancy (~2013) Insomnia Kyphosis Surgical History Hx of kyphoplasty (05/29/14) Hx of lumpectomy S/P total abdominal hysterectomy and bilateral salpingo-oophorectomy Status post appendectomy Status post hernia repair Status post tonsillectomy and adenoidectomy Family History Father Diabetes mellitus Gallstones Heart disease Mother Dementia Bladder cancer Stomach cancer Social History marital status: household members: friend(s) occupational status: previously employed Smoking Status: Former smoker alcohol intake: current substance use type: does not use Meds Home Medications and Allergies Home Medications Medication Instructions Recorded Confirmed Type [id number] 18 1 tab PO BEDTIME 02/24/21 06/21/22 History mg-0.4 mg tablet mirtazapine 15 mg tablet 15 mg PO BEDTIME #90 tabs 09/26/21 06/21/22 Rx metoprolol succinate 50 mg 50 mg PO BEDTIME 05/16/22 06/21/22 History tablet,extended release 24 hr ondansetron 4 mg disintegrating 4 mg PO Q6H nausea #36 tabs 05/29/22 06/21/22 Rx tablet morphine 15 mg tablet,extended 15 mg PO Q12H #60 tabs 06/21/22 Rx release (MS Contin) morphine 15 mg tablet,extended 15 mg PO Q8H #30 tabs 06/21/22 Rx release (MS Contin) ondansetron 4 mg disintegrating 4 mg PO TID-QID PRN nausea and 06/26/22 Rx tablet vomiting #10 tabs pantoprazole 20 mg tablet,delayed 20 mg PO DAILY #30 tabs 06/28/22 Rx release dronabinol 2.5 mg capsule (Marinol) 5 mg PO BID #60 caps 07/12/22 Rx ondansetron 4 mg disintegrating 4 mg PO Q6H PRN nausea and 07/21/22 Rx tablet vomiting #20 tabs lorazepam 0.5 mg tablet 0.5 mg PO BID PRN anxiety #30 tabs 08/01/22 Rx lorazepam 1 mg tablet (Ativan) 1 mg PO Q6HR PRN Nausea #30 tabs 08/08/22 Rx escitalopram oxalate 5 mg tablet 5 mg PO DAILY #90 tabs 08/09/22 Rx oxycodone 5 mg capsule 5 mg PO Q8H PRN Pain (Scale Score 08/09/22 Rx 1-3) #30 caps Allergies Allergy/AdvReac Type Severity Reaction Status Date / Time diazepam Allergy Mild ITCHING, Verified 06/01/22 12:13 REDNESS penicillin G Allergy Mild ITCHING, Verified 06/01/22 12:13 REDNESS simvastatin Allergy Mild TIRED AND Verified 06/01/22 12:13 ACHY Sulfa (Sulfonamide Allergy Mild ITCHING Verified 06/01/22 12:13 Antibiotics) REDNESS Exam Vital Signs (past 8 hours): - 08/14/22 09:59 08/14/22 09:50 08/14/22 09:50 Temperature 97 F L Pulse Rate 110 H 112 H Respiratory Rate 24 Blood Pressure 101/64 101/64 Pulse Oximetry 98 Oxygen Delivery Method Nasal Cannula Oxygen Flow Rate 2 08/14/22 09:55 08/14/22 10:00 08/14/22 10:00 Temperature Pulse Rate 110 H 110 H Respiratory Rate Blood Pressure 97/58 L Pulse Oximetry 98 98 Oxygen Delivery Method Nasal Cannula Nasal Cannula Oxygen Flow Rate 2 2 08/14/22 10:05 08/14/22 10:10 08/14/22 10:15 Temperature Pulse Rate 107 H 108 H 109 H Respiratory Rate 29 H 29 H Blood Pressure Pulse Oximetry 97 97 98 Oxygen Delivery Method Nasal Cannula Nasal Cannula Nasal Cannula Oxygen Flow Rate 2 2 2 08/14/22 10:20 08/14/22 10:25 08/14/22 10:30 Temperature Pulse Rate 111 H 110 H Respiratory Rate Blood Pressure 86/61 L Pulse Oximetry 98 98 Oxygen Delivery Method Nasal Cannula Nasal Cannula Oxygen Flow Rate 2 2 08/14/22 10:30 08/14/22 10:35 08/14/22 10:40 Temperature Pulse Rate 111 H 112 H 113 H Respiratory Rate 30 H 28 H 31 H Blood Pressure Pulse Oximetry 98 97 98 Oxygen Delivery Method Nasal Cannula Nasal Cannula Oxygen Flow Rate 2 2 08/14/22 10:41 08/14/22 10:41 08/14/22 10:45 Temperature Pulse Rate 109 H 111 H Respiratory Rate 30 H 31 H Blood Pressure 97/59 L Pulse Oximetry 97 97 Oxygen Delivery Method Nasal Cannula Nasal Cannula Oxygen Flow Rate 2 2 08/14/22 10:46 08/14/22 10:46 08/14/22 10:50 Temperature Pulse Rate 110 H Respiratory Rate 30 H Blood Pressure 91/58 L 99/61 Pulse Oximetry 97 Oxygen Delivery Method Nasal Cannula Oxygen Flow Rate 2 08/14/22 10:50 08/14/22 10:55 08/14/22 10:55 Temperature Pulse Rate 111 H 105 H Respiratory Rate 33 H 28 H Blood Pressure 95/57 L Pulse Oximetry 99 100 Oxygen Delivery Method Nasal Cannula Nasal Cannula Oxygen Flow Rate 2 2 08/14/22 11:00 08/14/22 11:00 08/14/22 11:05 Temperature Pulse Rate 108 H Respiratory Rate 28 H Blood Pressure 114/70 94/66 Pulse Oximetry 100 Oxygen Delivery Method Nasal Cannula Oxygen Flow Rate 2 08/14/22 11:05 08/14/22 11:10 08/14/22 11:10 Temperature Pulse Rate 112 H 114 H Respiratory Rate 34 H 32 H Blood Pressure 104/63 Pulse Oximetry 100 100 Oxygen Delivery Method Nasal Cannula Nasal Cannula Oxygen Flow Rate 2 2 08/14/22 11:15 08/14/22 11:15 08/14/22 11:20 Temperature Pulse Rate 109 H Respiratory Rate 28 H Blood Pressure 89/53 L 91/52 L Pulse Oximetry 99 Oxygen Delivery Method Nasal Cannula Oxygen Flow Rate 2 08/14/22 11:20 08/14/22 11:25 08/14/22 11:25 Temperature Pulse Rate 112 H 112 H Respiratory Rate 32 H 37 H Blood Pressure 97/66 Pulse Oximetry 100 100 Oxygen Delivery Method Nasal Cannula Nasal Cannula Oxygen Flow Rate 2 2 Oxygen Delivery Method Nasal Cannula Oxygen Flow Rate 2 Narrative Exam Narrative: General patient is significantly pale sleeping show signs of mild nourishment HEENT pallor or mucosa is moist neck is supple Cardio tachycardic with a systolic murmur Respiratory slight increased work of breathing crackles at lung bases Abdomen soft nontender Extremities signs of dehydration decreased and prolonged capillary refill Assessment & Plan Assessment and plan (1) Hemoptysis: Status: Acute (2) Esophageal cancer: Status: Acute Plan 87-year-old female with recurrent esophageal cancer on palliative chemotherapy status post previous radiation and chemotherapy. Patient and family wishes were reviewed and discussed. Due to the volume of hemoptysis significant discomfort and lack of support at home patient will be admitted at the hospital for comfort care. Patient will have a scopolamine patch placed. She will be given IV lorazepam and IV morphine. They do not want further workup and evaluation as per patient's advanced directives. Will hold off on laboratory tests and other evaluations at this point. Patient will be admitted with comfort measures. We will monitor and treat to her ongoing heme up to [place] this is best as possible. Plan will be comfort care and evaluation for hospice. I do not anticipate patient to make it through the hospital stay but if not we can work on hospice as an outpatient here in the next day or so.
[2022-08-14] MEDS: SODIUM CHLORIDE 0.9% 1,000 ML 21 ML IV (12:49)
--- NOTE | 2022-08-14 13:07 | PC.NURSE ---
Addendum entered by Delmi Cano R.N. 08/14/22 17:57: Patient just given ativan as she was becoming restless. This has been helpful. She is able to reposition herself in the bed and is currently lying on her r.side. Addendum entered by Delmi Cano R.N. 08/14/22 14:50: Patient just had a medium stool with crimson/red blood. She is back to bed after being cleaned up. Patient able to make it to the commode with 2 people helping. Given a warm blanket. Son states that patient threw up blood this morning after taking a sip of water. He is having a hard time seeing his mom not feeling well. Dr. Treviño also aware of rectal bleeding, he states to keep patient comfortable. Original Note: Patient is in bed, her skin is clear. She has an old scratch that is healed up to shoulder. Patient is resting and napping in bed. She has NS at 21cc/hr infusing and is tolerating this well. Patients son and friend are in the room. Patient is on comfort care and she is a DNR. She will be having hospice start tomorrow if she discharges home. They had already looked into this before she fell and came to the hospital today. VSS.
[2022-08-14] MEDS: LORazepam 2 MG/ML INJ 1 MG IV ×2 (17:29→23:41)
[2022-08-14] MEDS: MORPHINE 2 MG/ML INJ IV (20:06)
[2022-08-14] MEDS: ONDANSETRON 4 MG/2 ML INJ IV (20:06)
[2022-08-14] MEDS: SCOPOLAMINE 1 PATCH TOP (23:41)
[2022-08-15 00:18] VITALS: RESP 14
[2022-08-15] MEDS: LORazepam 2 MG/ML INJ 1 MG IV ×4 (02:00→10:48)
[2022-08-15] MEDS: MORPHINE 2 MG/ML INJ IV ×6 (02:00→10:40)
[2022-08-15 03:53] VITALS: RESP 26
[2022-08-15 05:37] VITALS: RESP 20
--- NOTE | 2022-08-15 07:48 | PM.PN.1 ---
Subjective Subjective Date Patient Seen: 08/15/22 Time Patient Seen: 07:48 Interval history: Patient seen examined. Son at bedside. Discussed care with night nurse and day nursing. On a little bit of oxygen. IV fluids have been stopped. Has a scopolamine patch getting morphine and Ativan seems to be resting comfortably. Patient is not arousable this morning. Reviewed care plan with son today. Discussed about hospice although this may not be necessary as patient is close to dying. Exam Vital Signs (past 8 hours): - 08/15/22 00:18 08/15/22 03:53 08/15/22 05:37 Respiratory Rate 14 26 H 20 Fraction of Inspired Oxygen 30 SaO2/FiO2 Ratio 323 Oxygen Delivery Method Nasal Cannula Oxygen Flow Rate 2 Narrative Exam Narrative: Gen.: Patient unconscious HEENT: Patient is pale dry mucosa Cardio: S1-S2 systolic murmur with tachycardia Respiratory: Mild increased work of breathing Abdomen: Soft does not appear to be tender Extremities: Warm dry perfused PFSH Medical History Anxiety Breast cancer Compression fracture of thoracic vertebra (04/27/14) Depression Diverticulitis Esophageal cancer Esophageal cancer HTN (hypertension) Hx of esophageal malignancy (~2013) Insomnia Kyphosis Surgical History Hx of kyphoplasty (05/29/14) Hx of lumpectomy S/P total abdominal hysterectomy and bilateral salpingo-oophorectomy Status post appendectomy Status post hernia repair Status post tonsillectomy and adenoidectomy Family History Father Diabetes mellitus Gallstones Heart disease Mother Dementia Bladder cancer Stomach cancer Social History marital status: household members: family and friend(s) occupational status: previously employed Smoking Status: Former smoker alcohol intake: current substance use type: does not use Assessment & Plan Assessment and plan (1) Hemoptysis: Status: Acute (2) Esophageal cancer: Status: Acute Plan Recurrent metastatic esophageal cancer patient admitted with hematemesis and hematochezia. Patient and family care wishes at this point or comfort care. Patient receiving IV morphine IV Ativan stop IV fluids. Reduce nasal cannula as it is just causing drying. Place a Covarrubias catheter if urinary output is significant. Continue with pain management. Comfort care order set as written. Patient is passing is imminent. Will require hospitalization for 1 or 2 more days. Quality VTE Deep Vein Thrombosis/Pulmonary Embolism Present on Admission: No
[2022-08-15 08:00] VITALS: O2SAT 78
--- NOTE | 2022-08-15 09:31 | PM.PN.1 ---
Exam Vital Signs (past 8 hours): - 08/15/22 03:53 08/15/22 05:37 Respiratory Rate 26 H 20 Fraction of Inspired Oxygen 30 SaO2/FiO2 Ratio 323 Oxygen Delivery Method Nasal Cannula Oxygen Flow Rate 2 PFSH Medical History Anxiety Breast cancer Compression fracture of thoracic vertebra (04/27/14) Depression Diverticulitis Esophageal cancer Esophageal cancer HTN (hypertension) Hx of esophageal malignancy (~2013) Insomnia Kyphosis Surgical History Hx of kyphoplasty (05/29/14) Hx of lumpectomy S/P total abdominal hysterectomy and bilateral salpingo-oophorectomy Status post appendectomy Status post hernia repair Status post tonsillectomy and adenoidectomy Family History Father Diabetes mellitus Gallstones Heart disease Mother Dementia Bladder cancer Stomach cancer Social History marital status: household members: family and friend(s) occupational status: previously employed Smoking Status: Former smoker alcohol intake: current substance use type: does not use Quality VTE Deep Vein Thrombosis/Pulmonary Embolism Present on Admission: No
[2022-08-15 10:49] VITALS: TEMP 35.8
--- NOTE | 2022-08-15 11:26 | PC.NURSE ---
Pt with erratic breathing and blood clots from mouth. Given ativan and morphine for comfort. Standing by with Pt's son Morgan. Cease of respirations and pulse at 1109. Pt appeared comfortable, attempted to console son. Notified coke burner and Dr. Treviño. [place] [facility] called.
--- NOTE | 2022-08-15 11:41 | CM.DANOTE ---
Initial Discharge Assessment Note: Case reviewed met with jacquelyn Mora, known to me. Explained my role. Payer: Medicare and [employer] 87 year old female admitted yesterday with hypotension, hemoptysis. She has h/o esophogeal cancer, recurrent breast cancer. Her son has been primary caregiver. Comfort measures are in place, patient has been receiving palliative chemo but the symptoms are advancing. Son had reached out to Hospice, but no call back over weekend. Per son and nursing, patient was up to [facility] last pm and made urine, but none since and she has no oral intake. She is a vargas color and mostly unresponsive. Morgan in room. He is only child and is very overwhelmed by his mom imminently passing, support provided by me and also his nurse Jocelin who will contact the [facility]. Plan: By the time this DCP has finished this note, the patient has , informed by nurse Jocelin. RAMIREZ Discharge Planning/Care Management Advanced directive, confirm from FAMILY Start: 08/14/22 12:48 Freq: Q24H Status: Complete Protocol: Document 08/14/22 12:48 TLS (Rec: 08/14/22 13:53 TLS [id number]) Advance Directive, confirm on record Time 13:00 Person contacted Morgan Morales Copy received No CM Discharge Assessment Start: 08/15/22 11:37 Freq: Status: Active Protocol: Document 08/15/22 11:39 SJ (Rec: 08/15/22 11:41 SJ [id number]) Discharge Planning Assessment Assigned Navigation Teacher Shanelle Dubose RN/DCP Advance Directives? Yes Advance Directives on File No: jacquelyn Mora states DNR; will call as pt start hospice 08/15 History Provided By Family Member,Medical Record Prior Living Arrangements House Household Members family Type of transporation used prior to Relies on Others admit Independent with ADL's No Is patient alert and oriented? No Caregiver for Another No Comment Son has appropriate equipment in her home as he has been caring for her. Barriers to Discharge No Discharge Plan Home Transportation Arrangement Son or BLS depending Additional Comment Hospice referral Review Status In Process Next Review Type Continued Stay Review
--- NOTE | 2022-08-15 13:35 | P.DN_ITS ---
Discharge Summary History of Illness Narrative: 88-year-old female with a past medical history of esophageal cancer recurrent breast cancer depression hyperlipidemia hypothyroidism generalized anxiety disorder presents to the emergency department with coughing up and spitting up blood. Patient was diagnosed with squamous cell skin cancer in 2012 she underwent he male radiation therapy in late 2020 she developed difficulty with swallowing done on EGD showed severe stricture consistent with invasive mo derately differentiated squamous cell carcinoma patient underwent palliative immunotherapy and radiation therapy for recurrent esophageal cancer. Patient presents to the emergency department with her son who has been primary caregiver. She has been on more comfort measure and palliative chemotherapy. He presented to the emergency department because she has been coughing up spitting up blood and having dark tarry stools on Sunday because of her advancing symptoms in based on patient wishes previously he reached out to hospice care they were unavailable to evaluate her at that time. Her symptoms progressed over the weekend and he brought her into the emergency department. Patient is responsive she says she is tired she is not in any pain. Son and family are bedside. They are wishing to proceed with the comfort care. They are concerned about the amount of bleeding that she is having and having her at home. After further discussion with patient and family will go ahead admit lyndon murrell to the hospital for symptom management due to her esophageal cancer pain control. Hospital Course Date of Admission: 08/14/22 10:51 Date of : 08/15/22 Primary care provider: Isma Treviño MD Consults: 08/14/22 11:30 Consult to Discharge Planning Routine Comment: Consult to Hospice Referral Urgent Comment: Discharge Diagnosis: Acute blood loss anemia Esophageal bleeding Recurrent esophageal cancer Metastatic esophageal cancer Hospital Course: Patient was admitted to the hospital with hematemesis and hematochezia pallor tachycardia and respiratory distress. Patient has been on palliative chemotherapy for recurrent esophageal cancer. Patient despite chemotherapy and treatment options had progression of disease. Patient was admitted the hospital for comfort measures and control of significant symptoms of bleeding and family care concerns. Patient was in the hospital for approximately 24 hours on comfort care and ultimately . Patient's son [id number] family friend were at the bedside.
--- NOTE | 2022-08-15 16:19 | PC.NURSE ---
Paperwork signed, no belongings, patient out via gurney with [facility]
== END 2022-08-15 16:20 | disposition expired | DRG 948 ==
LOC: ED 10:48 → AC 10:52
PROVIDERS: Admitting Provider Family Medicine; Emergency Provider Emergency Medicine; Family Provider Family Medicine; PCP Family Medicine; Referring Provider Emergency Medicine; Visit Provider Family Medicine
DX: G89.3 Neoplasm related pain (acute) (chronic) (principal); R04.2 Hemoptysis; C15.9 Malignant neoplasm of esophagus, unspecified; K92.0 Hematemesis; K92.1 Melena; R06.03 Acute respiratory distress; Z87.891 Personal history of nicotine dependence; Z51.5 Encounter for palliative care; Z20.822 Contact with and (suspected) exposure to COVID-19
CPT/HCPCS: 94760; 99223; 99232; 99284; J2060; J2270; J2405